=== PATIENT | male | born 1950 | race Caucasian/White ===

== ENCOUNTER → 2016-10-15 | Outpatient (CLI) | payer BC, OTHER ==
[~2016-10-15] MED LIST: ACET325T96 PO; ACTUDL10 PEG; ALBU1NEB10 INH; AMOX1TAB43 PEG; ATRINSX NEB; BISA10SU3 PR; DOXA2TAB PEG; FLUO20SO PEG; FOLI1TAB7 PEG; HALO2CON PEG; HALO2TAB PEG; LANS30TA3 PEG; LCTX PEG; MAGN400T6 PEG; MELA3CAP PEG; METH1TAB3 PO; METO25TA56 PEG; METO5TAB3 PEG; MICO12CR TOP; MOML PO; NUTR-1305 PEG; NYST100098 TOP; POTA10LI12 PEG; SODIENE PR; TRAM-10 PEG; WARF-283 PEG
[2016-10-15 09:20] LABS: INR 3.2 (0.9-1.1); PROTHROMBIN TIME (PATIENT) 35.9 SECONDS (9.0-12.0)
== END | disposition home or self-care (01) ==
LOC: C.LABUPHEI 08:45
PROVIDERS: ATTEND Family Medicine
DX: I48.91 Unspecified atrial fibrillation (principal)

== ENCOUNTER → 2016-10-18 | Outpatient (CLI) | payer BC, OTHER ==
[2016-10-18 11:40] LABS: PROTHROMBIN TIME (PATIENT) 46.8 SECONDS (9.0-12.0)
[2016-10-18 11:42] LABS: INR 4.1 (0.9-1.1)
== END ==
LOC: C.LABUPHEI 10:48
PROVIDERS: ATTEND Family Medicine
DX: I48.91 Unspecified atrial fibrillation (principal)

== ENCOUNTER → 2016-10-20 | Outpatient (CLI) | payer BC, OTHER ==
[2016-10-20 15:51] LABS: PROTHROMBIN TIME (PATIENT) 51.1 SECONDS (9.0-12.0)
[2016-10-20 15:54] LABS: INR 4.5 (0.9-1.1)
== END | disposition home or self-care (01) ==
LOC: C.LABUPHEI 12:30
PROVIDERS: ATTEND Family Medicine
DX: I48.91 Unspecified atrial fibrillation (principal)

== ENCOUNTER → 2016-10-20 | Outpatient (CLI) | payer BC, OTHER ==
--- NOTE | 2016-10-25 13:39 | CODING QUERY NO DIAGNOSIS ---
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 Please assist us with providing a diagnosis/symptom for the test(s) below: A diagnosis/symptom was not documented on your Order. A valid diagnosis/symptom is required to bill all insurances. Please remember that we are unable to code a diagnosis of rule out, probable, possible, questionable, or suspected. Tests that require a diagnosis: DOS: 10/20/16 * Prothrombin Time Profile DIAGNOSIS: Provider Signature: Date: Thank you Sheela Dacosta Health Information Management Once completed, please kindly fax back to [phone] For questions please call [phone]
== END ==
LOC: C.LABUPHEI 12:01
PROVIDERS: ATTEND Family Medicine
DX: Z00.00 Encounter for general adult medical examination without abnormal findings (principal)

== ENCOUNTER → 2016-10-22 | Outpatient (CLI) | payer BC, OTHER ==
[2016-10-22 09:47] LABS: INR 2.7 (0.9-1.1); PROTHROMBIN TIME (PATIENT) 29.7 SECONDS (9.0-12.0)
== END ==
LOC: C.LABUPHEI 09:07
PROVIDERS: ATTEND Family Medicine
DX: I48.91 Unspecified atrial fibrillation (principal)

== ENCOUNTER → 2016-10-31 | Outpatient (CLI) | payer BC, OTHER ==
[2016-10-31 10:06] LABS: INR 1.2 (0.9-1.1); PROTHROMBIN TIME (PATIENT) 13.2 SECONDS (9.0-12.0)
== END ==
LOC: C.LABUPHEI 09:01
PROVIDERS: ATTEND Family Medicine
DX: I48.91 Unspecified atrial fibrillation (principal)

== ENCOUNTER → 2016-12-14 | Outpatient (CLI) | payer BC, OTHER ==
[2016-12-14 08:55] LABS: URINE APPEARANCE TURBID (CLEAR); URINE BILIRUBIN NEG (NEG); URINE COLOR YELLOW; URINE EPITHELIAL CELL AUTO 0-5 /lpf (0-5); URINE NITRITE NEG (NEG); URINE SPECIFIC GRAVITY 1.015 (1.000-1.030); UROBILINOGEN NEG (NEG)
[2016-12-14 08:57] LABS: MANUAL MICROSCOPIC REQUIRED? NO; REVIEW REQ? NO
== END | disposition home or self-care (01) ==
LOC: C.LABUPHEI 08:03
PROVIDERS: ATTEND Family Medicine
DX: R35.0 Frequency of micturition (principal)

== ENCOUNTER → 2017-01-01 | Outpatient (CLI) | payer BC, OTHER ==
[2017-01-01 09:42] LABS: BASO % 0.5 %; BASO ABS # 0.05 K/uL (0-0.2); COMPLETE YES; EOS % 2.3 %; HEMATOCRIT 41.7 % (42-52); IG% 0.3 %; LYMPH % 10.6 %; LYMPH ABS # 1.03 K/uL (1.2-3.4); MEAN CELL VOLUME 98.3 fL (80-100); MEAN CORPUSCULAR HEMOGLOBIN 32.8 pg (25-34); MEAN CORPUSCULAR HGB CONC 33.3 g/dl (32-36); MEAN PLATELET VOLUME 12.7 fL (7.4-10.4); MONO % 10.5 %; NEUT % 75.8 %; PLATELET COUNT 328 K/uL (130-400); RED BLOOD COUNT 4.24 M/uL (4.7-6.1); WHITE BLOOD COUNT 9.68 K/uL (4.8-10.8)
[2017-01-01 09:46] LABS: BLOOD UREA NITROGEN 21 mg/dl (7-18); BUN/CREATININE RATIO 23.9 (10-20); CALCIUM 8.6 mg/dl (8.5-10.1); CARBON DIOXIDE 29 mmol/L (21-32); CHLORIDE 109 mmol/L (98-107); GLUCOSE 117 mg/dl (70-99); POTASSIUM 4.2 mmol/L (3.5-5.1); SODIUM 144 mmol/L (136-145)
[2017-01-01 09:58] LABS: THYROID STIMULATING HORMONE 0.618 uIu/ml (0.300-4.500)
[2017-01-01 10:07] LABS: INR 1.7 (0.9-1.1); PROTHROMBIN TIME (PATIENT) 18.1 SECONDS (9.0-12.0)
== END ==
LOC: C.LABUPHEI 09:18
PROVIDERS: ATTEND Family Medicine
DX: I10 Essential (primary) hypertension (principal); R53.83 Other fatigue; I48.91 Unspecified atrial fibrillation

== ENCOUNTER → 2017-01-08 | Outpatient (CLI) | payer BC, OTHER ==
[2017-01-08 09:57] LABS: INR 1.9 (0.9-1.1); PROTHROMBIN TIME (PATIENT) 20.9 SECONDS (9.0-12.0)
== END | disposition home or self-care (01) ==
LOC: C.LABUPHEI 09:17
PROVIDERS: ATTEND Family Medicine
DX: I48.91 Unspecified atrial fibrillation (principal)

== ENCOUNTER → 2017-01-15 | Outpatient (CLI) | payer BC, OTHER ==
[2017-01-15 10:19] LABS: INR 2.3 (0.9-1.1)
== END ==
LOC: C.LABUPHEI 09:19
PROVIDERS: ATTEND Family Medicine
DX: I48.91 Unspecified atrial fibrillation (principal)

== ENCOUNTER → 2017-02-20 | Outpatient (CLI) | payer BC, OTHER ==
[2017-02-20 10:06] LABS: INR 1.5 (0.9-1.1); PROTHROMBIN TIME (PATIENT) 16.1 SECONDS (9.0-12.0)
== END ==
LOC: C.LABUPHEI 09:30
PROVIDERS: ATTEND Nurse Practitioner Family
DX: I48.91 Unspecified atrial fibrillation (principal)

== ENCOUNTER → 2017-02-25 | Outpatient (CLI) | payer BC, OTHER ==
[2017-02-25 09:19] LABS: INR 1.5 (0.9-1.1); PROTHROMBIN TIME (PATIENT) 16.3 SECONDS (9.0-12.0)
== END ==
LOC: C.LABUPHEI 08:38
PROVIDERS: ATTEND Nurse Practitioner Family
DX: I48.91 Unspecified atrial fibrillation (principal)

== ENCOUNTER → 2017-02-27 | Outpatient (CLI) | payer BC, OTHER ==
[2017-02-27 09:04] LABS: INR 1.7 (0.9-1.1)
== END ==
LOC: C.LABUPHEI 08:44
PROVIDERS: ATTEND Family Medicine
DX: I48.91 Unspecified atrial fibrillation (principal)

== ENCOUNTER → 2017-03-04 | Outpatient (CLI) | payer BC, OTHER ==
[2017-03-04 11:11] LABS: PROTHROMBIN TIME (PATIENT) 33.3 SECONDS (9.0-12.0)
== END ==
LOC: C.LABUPHEI 09:34
PROVIDERS: ATTEND Nurse Practitioner Family
DX: I48.91 Unspecified atrial fibrillation (principal)

== ENCOUNTER → 2017-03-05 | Outpatient (CLI) | payer BC, OTHER ==
[2017-03-05 11:13] LABS: INR 2.5 (0.9-1.1); PROTHROMBIN TIME (PATIENT) 27.4 SECONDS (9.0-12.0)
== END ==
LOC: C.LABUPHEI 09:14
PROVIDERS: ATTEND Family Medicine
DX: I48.91 Unspecified atrial fibrillation (principal)

== ENCOUNTER → 2017-03-12 | Outpatient (CLI) | payer BC, OTHER ==
[2017-03-12 10:58] LABS: INR 1.5 (0.9-1.1); PROTHROMBIN TIME (PATIENT) 16.7 SECONDS (9.0-12.0)
== END ==
LOC: C.LABUPHEI 10:16
PROVIDERS: ATTEND Family Medicine
DX: I48.91 Unspecified atrial fibrillation (principal)

== ENCOUNTER → 2017-03-19 | Outpatient (CLI) | payer BC, OTHER ==
[2017-03-19 09:53] LABS: INR 2.5 (0.9-1.1); PROTHROMBIN TIME (PATIENT) 27.9 SECONDS (9.0-12.0)
== END ==
LOC: C.LABUPHEI 09:16
PROVIDERS: ATTEND Family Medicine
DX: I48.91 Unspecified atrial fibrillation (principal)

== ENCOUNTER → 2017-03-26 | Outpatient (CLI) | payer BC, OTHER ==
[2017-03-26 11:08] LABS: INR 3.2 (0.9-1.1); PROTHROMBIN TIME (PATIENT) 35.9 SECONDS (9.0-12.0)
== END | disposition home or self-care (01) ==
LOC: C.LABUPHEI 09:19
PROVIDERS: ATTEND Family Medicine
DX: I48.91 Unspecified atrial fibrillation (principal)

== ENCOUNTER → 2017-03-28 | Outpatient (CLI) | payer BC, OTHER ==
[2017-03-28 09:19] LABS: INR 2.9 (0.9-1.1)
== END | disposition home or self-care (01) ==
LOC: C.LABUPHEI 08:21
PROVIDERS: ATTEND Family Medicine
DX: I48.91 Unspecified atrial fibrillation (principal)

== ENCOUNTER → 2017-04-04 | Outpatient (CLI) | payer BC, OTHER ==
[2017-04-04 10:53] LABS: INR 1.7 (0.9-1.1); PROTHROMBIN TIME (PATIENT) 18.1 SECONDS (9.0-12.0)
== END | disposition home or self-care (01) ==
LOC: C.LABUPHEI 09:16
PROVIDERS: ATTEND Family Medicine
DX: Z51.81 Encounter for therapeutic drug level monitoring (principal); Z79.01 Long term (current) use of anticoagulants; I48.91 Unspecified atrial fibrillation

== ENCOUNTER → 2017-04-08 | Outpatient (CLI) | payer BC, OTHER ==
[2017-04-08 11:00] LABS: BASO ABS # 0.07 K/uL (0-0.2); COMPLETE YES; EOS % 3.5 %; HEMATOCRIT 42.3 % (42-52); IG% 0.3 %; LYMPH % 26.3 %; LYMPH ABS # 1.78 K/uL (1.2-3.4); MEAN CELL VOLUME 99.5 fL (80-100); MEAN CORPUSCULAR HEMOGLOBIN 32.5 pg (25-34); MEAN CORPUSCULAR HGB CONC 32.6 g/dl (32-36); MEAN PLATELET VOLUME 13.1 fL (7.4-10.4); MONO % 12.2 %; NEUT % 56.7 %; PLATELET COUNT 298 K/uL (130-400); RED BLOOD COUNT 4.25 M/uL (4.7-6.1); WHITE BLOOD COUNT 6.78 K/uL (4.8-10.8)
[2017-04-08 11:03] LABS: INR 3.2 (0.9-1.1); PROTHROMBIN TIME (PATIENT) 36.4 SECONDS (9.0-12.0)
[2017-04-08 11:17] LABS: ALT/SGPT 52 U/L (12-78); BLOOD UREA NITROGEN 18 mg/dl (7-18); BUN/CREATININE RATIO 21.5 (10-20); CALCIUM 8.9 mg/dl (8.5-10.1); CARBON DIOXIDE 32 mmol/L (21-32); CHLORIDE 104 mmol/L (98-107); CREATININE 0.82 mg/dl (0.60-1.40); GLUCOSE 78 mg/dl (70-99); SODIUM 143 mmol/L (136-145)
[2017-04-08 11:19] LABS: ALB/GLOB RATIO 1.1 (0.9-2); ALKALINE PHOSPHATASE 106 U/L (45-117); AST/SGOT 41 U/L (15-37)
== END | disposition home or self-care (01) ==
LOC: C.LABUPHEI 08:08
PROVIDERS: ATTEND Family Medicine
DX: I10 Essential (primary) hypertension (principal); I48.91 Unspecified atrial fibrillation

== ENCOUNTER → 2017-04-11 | Outpatient (CLI) | payer BC, OTHER ==
[2017-04-11 10:52] LABS: INR 2.9 (0.9-1.1); PROTHROMBIN TIME (PATIENT) 32.7 SECONDS (9.0-12.0)
== END ==
LOC: C.LABUPHEI 09:06
PROVIDERS: ATTEND Family Medicine
DX: I48.91 Unspecified atrial fibrillation (principal)

== ENCOUNTER → 2017-04-18 | Outpatient (CLI) | payer BC, OTHER ==
[2017-04-18 09:28] LABS: INR 2.2 (0.9-1.1); PROTHROMBIN TIME (PATIENT) 24.1 SECONDS (9.0-12.0)
== END ==
LOC: C.LABUPHEI 08:09
PROVIDERS: ATTEND Family Medicine
DX: Z01.89 Encounter for other specified special examinations (principal)

== ENCOUNTER → 2017-04-27 | Outpatient (CLI) | payer BC, OTHER ==
[2017-04-27 06:58] LABS: BASO % 0.4 %; BASO ABS # 0.03 K/uL (0-0.2); COMPLETE YES; EOS % 2.3 %; HEMATOCRIT 43.9 % (42-52); IG% 0.1 %; LYMPH % 18.8 %; LYMPH ABS # 1.41 K/uL (1.2-3.4); MEAN CELL VOLUME 98.2 fL (80-100); MEAN CORPUSCULAR HEMOGLOBIN 31.5 pg (25-34); MEAN CORPUSCULAR HGB CONC 32.1 g/dl (32-36); MEAN PLATELET VOLUME 13.1 fL (7.4-10.4); MONO % 12.9 %; NEUT % 65.5 %; PLATELET COUNT 304 K/uL (130-400); RED BLOOD COUNT 4.47 M/uL (4.7-6.1); WHITE BLOOD COUNT 7.51 K/uL (4.8-10.8)
== END | disposition home or self-care (01) ==
LOC: C.LABUPHEI 12:08
PROVIDERS: ATTEND Family Medicine
DX: I10 Essential (primary) hypertension (principal)

== ENCOUNTER → 2017-05-03 | Outpatient (CLI) | payer BC, OTHER ==
[2017-05-03 09:15] LABS: PROTHROMBIN TIME (PATIENT) 42.8 SECONDS (9.0-12.0)
[2017-05-03 09:31] LABS: INR 3.8 (0.9-1.1)
== END ==
LOC: C.LABUPHEI 08:51
PROVIDERS: ATTEND Nurse Practitioner Family
DX: I48.91 Unspecified atrial fibrillation (principal)

== ENCOUNTER → 2017-05-10 | Outpatient (CLI) | payer BC, OTHER ==
[2017-05-10 10:17] LABS: PROTHROMBIN TIME (PATIENT) 68.9 SECONDS (9.0-12.0)
== END | disposition home or self-care (01) ==
LOC: C.LABUPHEI 09:36
PROVIDERS: ATTEND Family Medicine
DX: I48.91 Unspecified atrial fibrillation (principal)

== ENCOUNTER → 2017-05-11 | Outpatient (CLI) | payer BC, OTHER ==
[2017-05-11 08:35] LABS: INR 2.5 (0.9-1.1); PROTHROMBIN TIME (PATIENT) 27.9 SECONDS (9.0-12.0)
== END ==
LOC: C.LABUPHEI 08:24
PROVIDERS: ATTEND Family Medicine
DX: I48.91 Unspecified atrial fibrillation (principal)

== ENCOUNTER → 2017-05-13 | Outpatient (CLI) | payer BC, OTHER ==
[2017-05-13 10:37] LABS: INR 2.3 (0.9-1.1); PROTHROMBIN TIME (PATIENT) 25.4 SECONDS (9.0-12.0)
== END ==
LOC: C.LABUPHEI 09:45
PROVIDERS: ATTEND Nurse Practitioner Family
DX: I48.91 Unspecified atrial fibrillation (principal)

== ENCOUNTER → 2017-05-16 | Outpatient (CLI) | payer BC, OTHER ==
[2017-05-16 09:28] LABS: PROTHROMBIN TIME (PATIENT) 22.5 SECONDS (9.0-12.0)
== END ==
LOC: C.LABUPHEI 08:46
PROVIDERS: ATTEND Nurse Practitioner Family
DX: I48.91 Unspecified atrial fibrillation (principal)

== ENCOUNTER → 2017-06-03 | Outpatient (CLI) | payer BC, OTHER ==
[2017-06-03 09:45] LABS: INR 2.4 (0.9-1.1); PROTHROMBIN TIME (PATIENT) 26.8 SECONDS (9.0-12.0)
== END ==
LOC: C.LABUPHEI 09:14
PROVIDERS: ATTEND Nurse Practitioner Family
DX: I48.91 Unspecified atrial fibrillation (principal)

== ENCOUNTER → 2017-06-18 | Outpatient (CLI) | payer BC, OTHER ==
[2017-06-18 11:35] LABS: INR 1.8 (0.9-1.1); PROTHROMBIN TIME (PATIENT) 20.1 SECONDS (9.0-12.0)
== END | disposition home or self-care (01) ==
LOC: C.LABUPHEI 10:10
PROVIDERS: ATTEND Nurse Practitioner Family
DX: I48.91 Unspecified atrial fibrillation (principal)

== ENCOUNTER → 2017-06-28 | Outpatient (CLI) | payer BC, OTHER ==
[2017-06-28 09:11] LABS: INR 2.9 (0.9-1.1); PROTHROMBIN TIME (PATIENT) 32.1 SECONDS (9.0-12.0)
[2017-06-28 09:19] LABS: ALT/SGPT 38 U/L (12-78); AST/SGOT 32 U/L (15-37); BLOOD UREA NITROGEN 15 mg/dl (7-18); BUN/CREATININE RATIO 23.9 (10-20); CALCIUM 8.7 mg/dl (8.5-10.1); CARBON DIOXIDE 31 mmol/L (21-32); CHLORIDE 106 mmol/L (98-107); CREATININE 0.64 mg/dl (0.60-1.40); GLUCOSE 114 mg/dl (70-99); POTASSIUM 3.8 mmol/L (3.5-5.1); SODIUM 139 mmol/L (136-145)
[2017-06-28 09:22] LABS: ALKALINE PHOSPHATASE 103 U/L (45-117)
== END | disposition home or self-care (01) ==
LOC: C.LABUPHEI 08:31
PROVIDERS: ATTEND Nurse Practitioner Family
DX: I10 Essential (primary) hypertension (principal); I48.91 Unspecified atrial fibrillation

== ENCOUNTER → 2017-07-12 | Outpatient (CLI) | payer BC, OTHER ==
[2017-07-12 10:10] LABS: INR 1.5 (0.9-1.1); PROTHROMBIN TIME (PATIENT) 16.3 SECONDS (9.0-12.0)
== END ==
LOC: C.LABUPHEI 09:26
PROVIDERS: ATTEND Nurse Practitioner Family
DX: I48.91 Unspecified atrial fibrillation (principal)

== ENCOUNTER → 2017-07-23 | Outpatient (CLI) | payer BC, OTHER ==
[2017-07-23 08:29] LABS: BASO % 0.4 %; BASO ABS # 0.05 K/uL (0-0.2); COMPLETE YES; EOS % 2.8 %; HEMATOCRIT 40.7 % (42-52); IG% 0.3 %; LYMPH % 10.1 %; LYMPH ABS # 1.19 K/uL (1.2-3.4); MEAN CELL VOLUME 100.5 fL (80-100); MEAN CORPUSCULAR HEMOGLOBIN 33.6 pg (25-34); MEAN CORPUSCULAR HGB CONC 33.4 g/dl (32-36); MEAN PLATELET VOLUME 12.5 fL (7.4-10.4); MONO % 12.4 %; PLATELET COUNT 367 K/uL (130-400); RED BLOOD COUNT 4.05 M/uL (4.7-6.1); WHITE BLOOD COUNT 11.74 K/uL (4.8-10.8)
== END ==
LOC: C.LABUPHEI 08:14
PROVIDERS: ATTEND Nurse Practitioner Family
DX: I48.91 Unspecified atrial fibrillation (principal)

== ENCOUNTER → 2017-07-25 | Outpatient (CLI) | payer BC, OTHER ==
[2017-07-25 09:18] LABS: BASO % 0.7 %; BASO ABS # 0.05 K/uL (0-0.2); COMPLETE YES; EOS % 4.4 %; HEMATOCRIT 40.1 % (42-52); IG% 0.3 %; LYMPH % 18.9 %; LYMPH ABS # 1.45 K/uL (1.2-3.4); MEAN CELL VOLUME 101.5 fL (80-100); MEAN CORPUSCULAR HEMOGLOBIN 33.4 pg (25-34); MEAN CORPUSCULAR HGB CONC 32.9 g/dl (32-36); MEAN PLATELET VOLUME 12.7 fL (7.4-10.4); MONO % 14.3 %; NEUT % 61.4 %; PLATELET COUNT 324 K/uL (130-400); RED BLOOD COUNT 3.95 M/uL (4.7-6.1); WHITE BLOOD COUNT 7.67 K/uL (4.8-10.8)
== END | disposition home or self-care (01) ==
LOC: C.LABUPHEI 09:00
PROVIDERS: ATTEND Nurse Practitioner Family
DX: I48.91 Unspecified atrial fibrillation (principal)

== ENCOUNTER → 2017-08-07 | Outpatient (CLI) | payer BC, OTHER ==
[2017-08-07 08:35] LABS: INR 0.9 (0.9-1.1)
== END ==
LOC: C.LABUPHEI 07:59
PROVIDERS: ATTEND Nurse Practitioner Family
DX: I48.91 Unspecified atrial fibrillation (principal)

== ENCOUNTER → 2017-08-12 | Outpatient (CLI) | payer BC, OTHER ==
[2017-08-12 09:43] LABS: INR 3.2 (0.9-1.1); PROTHROMBIN TIME (PATIENT) 36.2 SECONDS (9.0-12.0)
== END ==
LOC: C.LABUPHEI 09:07
PROVIDERS: ATTEND Nurse Practitioner Family
DX: I48.91 Unspecified atrial fibrillation (principal)

== ENCOUNTER → 2017-08-23 | Outpatient (CLI) | payer BC, OTHER ==
[2017-08-23 10:07] LABS: INR 2.8 (0.9-1.1); PROTHROMBIN TIME (PATIENT) 31.7 SECONDS (9.0-12.0)
== END ==
LOC: C.LABUPHEI 09:23
PROVIDERS: ATTEND Nurse Practitioner Family
DX: I48.91 Unspecified atrial fibrillation (principal)

== ENCOUNTER → 2017-09-04 | Outpatient (CLI) | payer BC, OTHER ==
[2017-09-04 08:43] LABS: INR 2.7 (0.9-1.1); PROTHROMBIN TIME (PATIENT) 30.2 SECONDS (9.0-12.0)
== END ==
LOC: C.LABUPHEI 07:55
PROVIDERS: ATTEND Nurse Practitioner Family
DX: I48.91 Unspecified atrial fibrillation (principal)

== ENCOUNTER → 2017-09-18 | Outpatient (CLI) | payer BC, OTHER ==
[2017-09-18 09:25] LABS: INR 1.4 (0.9-1.1); PROTHROMBIN TIME (PATIENT) 14.6 SECONDS (9.0-12.0)
== END ==
LOC: C.LABUPHEI 09:05
PROVIDERS: ATTEND Nurse Practitioner Family
DX: Z51.81 Encounter for therapeutic drug level monitoring (principal); Z79.01 Long term (current) use of anticoagulants

== ENCOUNTER → 2017-09-19 | Outpatient (CLI) | payer BC, OTHER ==
[2017-09-19 08:52] LABS: BASO % 0.2 %; BASO ABS # 0.03 K/uL (0-0.2); COMPLETE YES; EOS % 0.3 %; HEMATOCRIT 40.5 % (42-52); IG% 0.3 %; LYMPH % 7.8 %; LYMPH ABS # 1.12 K/uL (1.2-3.4); MEAN CELL VOLUME 99.5 fL (80-100); MEAN CORPUSCULAR HEMOGLOBIN 33.4 pg (25-34); MEAN CORPUSCULAR HGB CONC 33.6 g/dl (32-36); MEAN PLATELET VOLUME 12.9 fL (7.4-10.4); MONO % 9.5 %; NEUT % 81.9 %; PLATELET COUNT 287 K/uL (130-400); RED BLOOD COUNT 4.07 M/uL (4.7-6.1); WHITE BLOOD COUNT 14.31 K/uL (4.8-10.8)
[2017-09-19 09:03] LABS: ALT/SGPT 41 U/L (12-78); BLOOD UREA NITROGEN 27 mg/dl (7-18); BUN/CREATININE RATIO 27.2 (10-20); CALCIUM 8.6 mg/dl (8.5-10.1); CARBON DIOXIDE 29 mmol/L (21-32); CHLORIDE 103 mmol/L (98-107); CREATININE 0.98 mg/dl (0.60-1.40); GLUCOSE 96 mg/dl (70-99); POTASSIUM 3.9 mmol/L (3.5-5.1); SODIUM 138 mmol/L (136-145)
[2017-09-19 09:05] LABS: ALB/GLOB RATIO 0.9 (0.9-2); ALKALINE PHOSPHATASE 96 U/L (45-117); AST/SGOT 49 U/L (15-37)
[2017-09-19 09:06] LABS: URINE APPEARANCE CLEAR (CLEAR); URINE COLOR DK YELLOW; URINE EPITHELIAL CELL AUTO >30 /lpf (0-5); URINE NITRITE NEG (NEG); URINE PH 5.5 (4.5-7.5); URINE SPECIFIC GRAVITY 1.029 (1.000-1.030); UROBILINOGEN NEG (NEG); ZZUR CULT IF INDIC CLEAN CATCH NO
[2017-09-19 09:09] LABS: MANUAL MICROSCOPIC REQUIRED? NO; REVIEW REQ? YES
[2017-09-19 09:10] LABS: URINE BILIRUBIN NEG (NEG)
== END ==
LOC: C.LABUPHEI 08:25
PROVIDERS: ATTEND Nurse Practitioner Family
DX: Z87.19 Personal history of other diseases of the digestive system (principal); R52 Pain, unspecified

== ENCOUNTER → 2017-09-23 | Outpatient (CLI) | payer BC, OTHER ==
[~2017-09-23] MED LIST changes: -FOLI1TAB7 PEG; +FOLI1TAB8 PEG
[2017-09-23 08:44] LABS: BASO % 0.5 %; BASO ABS # 0.04 K/uL (0-0.2); COMPLETE YES; HEMATOCRIT 38.4 % (42-52); IG% 0.5 %; LYMPH % 19.5 %; LYMPH ABS # 1.67 K/uL (1.2-3.4); MEAN CELL VOLUME 99.7 fL (80-100); MEAN CORPUSCULAR HEMOGLOBIN 32.5 pg (25-34); MEAN CORPUSCULAR HGB CONC 32.6 g/dl (32-36); MEAN PLATELET VOLUME 12.3 fL (7.4-10.4); NEUT % 61.5 %; PLATELET COUNT 353 K/uL (130-400); RED BLOOD COUNT 3.85 M/uL (4.7-6.1); WHITE BLOOD COUNT 8.55 K/uL (4.8-10.8)
[2017-09-23 08:52] LABS: BLOOD UREA NITROGEN 12 mg/dl (7-18); BUN/CREATININE RATIO 18.6 (10-20); CALCIUM 8.6 mg/dl (8.5-10.1); CARBON DIOXIDE 28 mmol/L (21-32); CHLORIDE 105 mmol/L (98-107); CREATININE 0.66 mg/dl (0.60-1.40); GLUCOSE 90 mg/dl (70-99); POTASSIUM 4.3 mmol/L (3.5-5.1); SODIUM 138 mmol/L (136-145)
== END ==
LOC: C.LABUPHEI 08:22
PROVIDERS: ATTEND Nurse Practitioner Family
DX: E87.6 Hypokalemia (principal); Z87.01 Personal history of pneumonia (recurrent); I48.91 Unspecified atrial fibrillation

== ENCOUNTER → 2017-09-24 | Outpatient (CLI) | payer OTHER, BC ==
[2017-09-24 08:53] LABS: PROTHROMBIN TIME (PATIENT) 39.3 SECONDS (9.0-12.0)
[2017-09-24 08:54] LABS: INR 3.8 (0.9-1.1)
== END ==
LOC: C.LABUPHEI 08:14
PROVIDERS: ATTEND Nurse Practitioner Family
DX: I48.91 Unspecified atrial fibrillation (principal)

== ENCOUNTER → 2017-09-25 | Outpatient (CLI) | payer OTHER, BC ==
[2017-09-25 08:33] LABS: PROTHROMBIN TIME (PATIENT) 39.7 SECONDS (9.0-12.0)
[2017-09-25 08:36] LABS: INR 3.9 (0.9-1.1)
== END ==
LOC: C.LABUPHEI 07:57
PROVIDERS: ATTEND Nurse Practitioner Family
DX: Z95.2 Presence of prosthetic heart valve (principal)

== ENCOUNTER → 2017-09-27 | Outpatient (CLI) | payer OTHER, BC ==
[2017-09-27 08:57] LABS: INR 1.8 (0.9-1.1); PROTHROMBIN TIME (PATIENT) 18.9 SECONDS (9.0-12.0)
== END ==
LOC: C.LABUPHEI 08:29
PROVIDERS: ATTEND Nurse Practitioner Family
DX: I48.91 Unspecified atrial fibrillation (principal)

== ENCOUNTER → 2017-09-30 | Outpatient (CLI) | payer OTHER, BC ==
[2017-09-30 09:40] LABS: PROTHROMBIN TIME (PATIENT) 10.9 SECONDS (9.0-12.0)
== END ==
LOC: C.LABUPHEI 08:39
PROVIDERS: ATTEND Nurse Practitioner Family
DX: I10 Essential (primary) hypertension (principal)

== ENCOUNTER → 2017-10-03 | Outpatient (CLI) | payer BC, OTHER ==
[2017-10-03 09:21] LABS: INR 0.9 (0.9-1.1); PROTHROMBIN TIME (PATIENT) 9.7 SECONDS (9.0-12.0)
== END ==
LOC: C.LABUPHEI 08:38
PROVIDERS: ATTEND Nurse Practitioner Family
DX: I48.91 Unspecified atrial fibrillation (principal)

== ENCOUNTER → 2017-10-08 | Outpatient (CLI) | payer BC, OTHER ==
[2017-10-08 09:53] LABS: INR 1.7 (0.9-1.1); PROTHROMBIN TIME (PATIENT) 17.4 SECONDS (9.0-12.0)
== END ==
LOC: C.LABUPHEI 08:48
PROVIDERS: ATTEND Nurse Practitioner Family
DX: I48.91 Unspecified atrial fibrillation (principal)

== ENCOUNTER → 2017-10-10 | Outpatient (CLI) | payer BC, OTHER ==
[2017-10-10 09:27] LABS: INR 1.6 (0.9-1.1)
== END ==
LOC: C.LABUPHEI 09:07
PROVIDERS: ATTEND Nurse Practitioner Family
DX: I48.91 Unspecified atrial fibrillation (principal)

== ENCOUNTER → 2017-10-12 | Outpatient (CLI) | payer BC, OTHER ==
[~2017-10-12] MED LIST changes: +ACET-1693 PO; -ACET325T96 PO; -FLUO20SO PEG; +FLUO20SO9 PEG
[2017-10-12 05:39] LABS: INR 1.9 (0.9-1.1)
== END ==
LOC: C.LABUPHEI 12:04
PROVIDERS: ATTEND Nurse Practitioner Family
DX: I48.91 Unspecified atrial fibrillation (principal)

== ENCOUNTER → 2017-10-15 | Outpatient (CLI) | payer OTHER ==
[2017-10-15 08:18] LABS: INR 2.8 (0.9-1.1)
== END ==
LOC: C.LABUPHEI 07:39
PROVIDERS: ATTEND Nurse Practitioner Family
DX: I48.91 Unspecified atrial fibrillation (principal)

== ENCOUNTER → 2017-10-17 | Outpatient (CLI) | payer OTHER ==
[~2017-10-17] MED LIST changes: -ACET-1693 PO; +ACET325T96 PO; +FLUO20SO PEG; -FLUO20SO9 PEG
[2017-10-17 09:19] LABS: INR 3.7 (0.9-1.1)
== END ==
LOC: C.LABUPHEI 08:37
PROVIDERS: ATTEND Nurse Practitioner Family
DX: I48.91 Unspecified atrial fibrillation (principal)

== ENCOUNTER → 2017-10-18 | Outpatient (CLI) | payer OTHER ==
[~2017-10-18] MED LIST changes: +ACET-1693 PO; -ACET325T96 PO; -FLUO20SO PEG; +FLUO20SO9 PEG
[2017-10-18 09:21] LABS: INR 4.1 (0.9-1.1)
== END ==
LOC: C.LABUPHEI 08:34
PROVIDERS: ATTEND Nurse Practitioner Family
DX: I48.91 Unspecified atrial fibrillation (principal)

== ENCOUNTER → 2017-10-19 | Outpatient (CLI) | payer OTHER ==
[~2017-10-19] MED LIST changes: -ACET-1693 PO; +ACET325T96 PO; +FLUO20SO PEG; -FLUO20SO9 PEG
[2017-10-19 06:47] LABS: INR 2.9 (0.9-1.1)
== END ==
LOC: C.LABUPHEI 09:38
PROVIDERS: ATTEND Nurse Practitioner Family
DX: R79.1 Abnormal coagulation profile (principal)

== ENCOUNTER → 2017-10-21 | Outpatient (CLI) | payer OTHER ==
[2017-10-21 09:36] LABS: INR 2.1 (0.9-1.1)
== END ==
LOC: C.LABUPHEI 09:17
PROVIDERS: ATTEND Nurse Practitioner Family
DX: I48.91 Unspecified atrial fibrillation (principal)

== ENCOUNTER → 2017-10-25 | Outpatient (CLI) | payer OTHER | LOC: C.LABUPHEI 08:13 | PROVIDERS: ATTEND Nurse Practitioner Family | DX: I48.91 Unspecified atrial fibrillation (principal) ==

== ENCOUNTER → 2017-11-01 | Outpatient (CLI) | payer OTHER | END | disposition home or self-care (01) | LOC: C.LABUPHEI 08:11 | PROVIDERS: ATTEND Nurse Practitioner Family | DX: I48.91 Unspecified atrial fibrillation (principal) ==

== ENCOUNTER → 2017-11-08 | Outpatient (CLI) | payer OTHER ==
[2017-11-08 08:55] LABS: INR 2.6 (0.9-1.1)
== END ==
LOC: C.LABUPHEI 08:23
PROVIDERS: ATTEND Nurse Practitioner Family
DX: I48.91 Unspecified atrial fibrillation (principal)

== ENCOUNTER → 2017-11-21 | Outpatient (CLI) | payer OTHER ==
[~2017-11-21] MED LIST changes: +ACET-1693 PO; -ACET325T96 PO
[2017-11-21 09:49] LABS: INR 2.5 (0.9-1.1)
== END ==
LOC: C.LABUPHEI 09:05
PROVIDERS: ATTEND Nurse Practitioner Family
DX: I48.91 Unspecified atrial fibrillation (principal)

== ENCOUNTER → 2017-12-05 | Outpatient (CLI) | payer OTHER | LOC: C.LABUPHEI 08:45 | PROVIDERS: ATTEND Nurse Practitioner Family | DX: I48.91 Unspecified atrial fibrillation (principal) ==

== ENCOUNTER → 2017-12-19 | Outpatient (CLI) | payer OTHER ==
[2017-12-19 10:05] LABS: INR 2.2 (0.9-1.1)
== END ==
LOC: C.LABUPHEI 08:35
PROVIDERS: ATTEND Nurse Practitioner Family
DX: I48.91 Unspecified atrial fibrillation (principal)

== ENCOUNTER → 2017-12-24 | Outpatient (CLI) | payer OTHER | END | disposition home or self-care (01) | LOC: C.LABUPHEI 09:35 | PROVIDERS: ATTEND Nurse Practitioner Family | DX: H57.9 Unspecified disorder of eye and adnexa (principal) ==

== ENCOUNTER → 2018-01-02 | Outpatient (CLI) | payer OTHER ==
[2018-01-02 08:54] LABS: INR 3.2 (0.9-1.1)
== END ==
LOC: C.LABUPHEI 08:21
PROVIDERS: ATTEND Nurse Practitioner Family
DX: I48.91 Unspecified atrial fibrillation (principal)

== ENCOUNTER → 2018-01-03 | Outpatient (CLI) | payer OTHER | LOC: C.LABUPHEI 07:55 | PROVIDERS: ATTEND Nurse Practitioner Family | DX: I48.91 Unspecified atrial fibrillation (principal) ==

== ENCOUNTER → 2018-01-06 | Outpatient (CLI) | payer OTHER ==
[2018-01-06 08:53] LABS: INR 1.7 (0.9-1.1)
== END ==
LOC: C.LABUPHEI 08:27
PROVIDERS: ATTEND Nurse Practitioner Family
DX: I48.91 Unspecified atrial fibrillation (principal)

== ENCOUNTER → 2018-01-08 | Outpatient (CLI) | payer OTHER ==
[2018-01-08 09:39] LABS: INR 1.6 (0.9-1.1)
== END ==
LOC: C.LABUPHEI 09:18
PROVIDERS: ATTEND Nurse Practitioner Family
DX: I48.91 Unspecified atrial fibrillation (principal)

== ENCOUNTER → 2018-01-11 | Outpatient (CLI) | payer OTHER ==
[2018-01-11 06:55] LABS: INR 2.7 (0.9-1.1)
== END ==
LOC: C.LABUPHEI 10:11
PROVIDERS: ATTEND Nurse Practitioner Family
DX: I48.91 Unspecified atrial fibrillation (principal)

== ENCOUNTER → 2018-01-15 | Outpatient (CLI) | payer OTHER ==
[2018-01-15 10:06] LABS: BLOOD UREA NITROGEN 16 mg/dl (7-18); CALCIUM 9.1 mg/dl (8.5-10.1); CARBON DIOXIDE 31 mmol/L (21-32); CREATININE 0.89 mg/dl (0.60-1.40); GLUCOSE 79 mg/dl (70-99); POTASSIUM 4.1 mmol/L (3.5-5.1); SODIUM 139 mmol/L (136-145)
[2018-01-15 10:14] LABS: INR 5.2 (0.9-1.1)
== END ==
LOC: C.LABUPHEI 09:00
PROVIDERS: ATTEND Nurse Practitioner Family
DX: R60.9 Edema, unspecified (principal); I48.91 Unspecified atrial fibrillation

== ENCOUNTER → 2018-01-17 | Outpatient (CLI) | payer OTHER ==
[2018-01-17 12:32] LABS: INR 5.4 (0.9-1.1)
== END ==
LOC: C.LABUPHEI 07:49
PROVIDERS: ATTEND Nurse Practitioner Family
DX: I48.91 Unspecified atrial fibrillation (principal)

== ENCOUNTER → 2018-01-20 | Outpatient (CLI) | payer OTHER | LOC: C.LABUPHEI 08:48 | PROVIDERS: ATTEND Nurse Practitioner Family | DX: I48.91 Unspecified atrial fibrillation (principal) ==

== ENCOUNTER → 2018-01-22 | Outpatient (CLI) | payer OTHER ==
[2018-01-22 08:46] LABS: INR 1.6 (0.9-1.1)
== END ==
LOC: C.LABUPHEI 08:13
PROVIDERS: ATTEND Nurse Practitioner Family
DX: I48.91 Unspecified atrial fibrillation (principal)

== ENCOUNTER → 2018-01-24 | Outpatient (CLI) | payer OTHER ==
[2018-01-24 09:11] LABS: INR 2.1 (0.9-1.1)
== END ==
LOC: C.LABUPHEI 08:36
PROVIDERS: ATTEND Nurse Practitioner Family
DX: I48.91 Unspecified atrial fibrillation (principal)

== ENCOUNTER → 2018-01-27 | Outpatient (CLI) | payer OTHER ==
[2018-01-27 10:00] LABS: BASO % 0.2 %; BASO ABS # 0.03 K/uL (0-0.2); EOS ABS # 0.14 K/uL (0-0.5); HEMATOCRIT 42.8 % (42-52); HEMOGLOBIN 14.8 g/dL (14.0-18.0); IG# 0.03 K/uL (0.00-0.02); LYMPH % 7.1 %; LYMPH ABS # 0.95 K/uL (1.2-3.4); MEAN CELL VOLUME 94.5 fL (80-100); MEAN CORPUSCULAR HEMOGLOBIN 32.7 pg (25-34); MEAN CORPUSCULAR HGB CONC 34.6 g/dl (32-36); MEAN PLATELET VOLUME 12.4 fL (7.4-10.4); MONO % 13.6 %; MONO ABS # 1.81 K/uL (0.11-0.59); NEUT % 77.9 %; NEUT ABS # 10.39 K/uL (1.4-6.5); NUCLEATED RED BLOOD CELL ABS 0.03 K/uL (0-0); PLATELET COUNT 340 K/uL (130-400); RED CELL DISTRIBUTION WIDTH CV 15.9 % (11.5-14.5); WHITE BLOOD COUNT 13.35 K/uL (4.8-10.8)
[2018-01-27 10:09] LABS: BLOOD UREA NITROGEN 13 mg/dl (7-18); CALCIUM 9.3 mg/dl (8.5-10.1); CARBON DIOXIDE 28 mmol/L (21-32); CREATININE 0.82 mg/dl (0.60-1.40); GLUCOSE 99 mg/dl (70-99); INR 3.2 (0.9-1.1); POTASSIUM 3.9 mmol/L (3.5-5.1); SODIUM 136 mmol/L (136-145)
== END ==
LOC: C.LABUPHEI 08:52
PROVIDERS: ATTEND Nurse Practitioner Family
DX: J18.9 Pneumonia, unspecified organism (principal); I48.91 Unspecified atrial fibrillation

== ENCOUNTER → 2018-01-28 | Outpatient (CLI) | payer OTHER ==
[2018-01-28 08:25] LABS: BASO % 0.4 %; BASO ABS # 0.04 K/uL (0-0.2); EOS % 3.8 %; EOS ABS # 0.37 K/uL (0-0.5); HEMOGLOBIN 14.2 g/dL (14.0-18.0); IG# 0.03 K/uL (0.00-0.02); LYMPH % 11.3 %; MEAN CELL VOLUME 94.3 fL (80-100); MEAN CORPUSCULAR HEMOGLOBIN 32.6 pg (25-34); MEAN CORPUSCULAR HGB CONC 34.6 g/dl (32-36); MEAN PLATELET VOLUME 11.9 fL (7.4-10.4); MONO % 14.6 %; MONO ABS # 1.42 K/uL (0.11-0.59); NEUT % 69.6 %; NEUT ABS # 6.77 K/uL (1.4-6.5); PLATELET COUNT 322 K/uL (130-400); RED CELL DISTRIBUTION WIDTH CV 16.1 % (11.5-14.5); RED CELL DISTRIBUTION WIDTH SD 56.2 fL (36.4-46.3); WHITE BLOOD COUNT 9.73 K/uL (4.8-10.8)
[2018-01-28 08:39] LABS: INR 3.9 (0.9-1.1)
== END ==
LOC: C.LABUPHEI 08:12
PROVIDERS: ATTEND Nurse Practitioner Family
DX: I25.10 Atherosclerotic heart disease of native coronary artery without angina pectoris (principal); I50.9 Heart failure, unspecified; I48.91 Unspecified atrial fibrillation

== ENCOUNTER → 2018-01-30 | Outpatient (CLI) | payer OTHER ==
[2018-01-30 10:25] LABS: INR 3.4 (0.9-1.1)
== END ==
LOC: C.LABUPHEI 09:50
PROVIDERS: ATTEND Nurse Practitioner Family
DX: I48.91 Unspecified atrial fibrillation (principal)

== ENCOUNTER → 2018-01-31 | Outpatient (CLI) | payer OTHER ==
[2018-01-31 08:35] LABS: INR 3.2 (0.9-1.1)
== END ==
LOC: C.LABUPHEI 08:02
PROVIDERS: ATTEND Nurse Practitioner Family
DX: I48.91 Unspecified atrial fibrillation (principal)

== ENCOUNTER → 2018-02-03 | Outpatient (CLI) | payer OTHER | END | disposition home or self-care (01) | LOC: C.LABUPHEI 08:57 | PROVIDERS: ATTEND Nurse Practitioner Family | DX: Z95.2 Presence of prosthetic heart valve (principal) ==

== ENCOUNTER → 2018-02-06 | Outpatient (CLI) | payer OTHER ==
[2018-02-06 09:55] LABS: INR 1.3 (0.9-1.1)
== END ==
LOC: C.LABUPHEI 08:50
PROVIDERS: ATTEND Nurse Practitioner Family
DX: I48.91 Unspecified atrial fibrillation (principal)

== ENCOUNTER → 2018-02-08 | Outpatient (CLI) | payer OTHER ==
[2018-02-08 09:41] LABS: INR 1.2 (0.9-1.1)
== END | disposition home or self-care (01) ==
LOC: C.LABUPHEI 09:28
PROVIDERS: ATTEND Nurse Practitioner Family
DX: Z95.2 Presence of prosthetic heart valve (principal)

== ENCOUNTER → 2018-02-11 | Outpatient (CLI) | payer OTHER ==
[2018-02-11 08:50] LABS: INR 1.2 (0.9-1.1)
== END ==
LOC: C.LABUPHEI 07:51
PROVIDERS: ATTEND Nurse Practitioner Family
DX: I48.91 Unspecified atrial fibrillation (principal)

== ENCOUNTER → 2018-02-13 | Outpatient (CLI) | payer OTHER ==
[2018-02-13 10:19] LABS: INR 1.5 (0.9-1.1)
== END | disposition home or self-care (01) ==
LOC: C.LABUPHEI 09:22
PROVIDERS: ATTEND Nurse Practitioner Family
DX: I48.91 Unspecified atrial fibrillation (principal)

== ENCOUNTER → 2018-02-15 | Outpatient (CLI) | payer OTHER ==
[2018-02-15 08:20] LABS: INR 2.3 (0.9-1.1)
== END ==
LOC: C.LABUPHEI 12:48
PROVIDERS: ATTEND Nurse Practitioner Family
DX: I48.91 Unspecified atrial fibrillation (principal)

== ENCOUNTER → 2018-02-20 | Outpatient (CLI) | payer OTHER ==
[2018-02-20 10:04] LABS: INR 3.4 (0.9-1.1)
== END ==
LOC: C.LABUPHEI 09:20
PROVIDERS: ATTEND Nurse Practitioner Family
DX: I48.91 Unspecified atrial fibrillation (principal)

== ENCOUNTER → 2018-02-27 | Outpatient (CLI) | payer OTHER ==
[2018-02-27 09:17] LABS: INR 5.3 (0.9-1.1)
== END ==
LOC: C.LABUPHEI 08:38
PROVIDERS: ATTEND Nurse Practitioner Family
DX: I48.91 Unspecified atrial fibrillation (principal)

== ENCOUNTER → 2018-02-28 | Outpatient (CLI) | payer OTHER | LOC: C.LABUPHEI 08:14 | PROVIDERS: ATTEND Nurse Practitioner Family | DX: I48.91 Unspecified atrial fibrillation (principal) ==

== ENCOUNTER → 2018-03-01 | Outpatient (CLI) | payer OTHER ==
[2018-03-01 09:15] LABS: INR 5.1 (0.9-1.1)
== END | disposition home or self-care (01) ==
LOC: C.LABUPHEI 09:16
PROVIDERS: ATTEND Nurse Practitioner Family
DX: I48.91 Unspecified atrial fibrillation (principal)

== ENCOUNTER → 2018-03-03 | Outpatient (CLI) | payer OTHER ==
[2018-03-03 09:02] LABS: INR 3.8 (0.9-1.1)
== END ==
LOC: C.LABUPHEI 08:10
PROVIDERS: ATTEND Nurse Practitioner Family
DX: I48.91 Unspecified atrial fibrillation (principal)

== ENCOUNTER → 2018-03-05 | Outpatient (CLI) | payer OTHER ==
[2018-03-05 09:20] LABS: INR 3.4 (0.9-1.1)
== END ==
LOC: C.LABUPHEI 08:41
PROVIDERS: ATTEND Nurse Practitioner Family
DX: I48.91 Unspecified atrial fibrillation (principal)

== ENCOUNTER → 2018-03-06 | Outpatient (CLI) | payer OTHER ==
[2018-03-06 08:44] LABS: INR 2.5 (0.9-1.1)
== END | disposition home or self-care (01) ==
LOC: C.LABUPHEI 08:14
PROVIDERS: ATTEND Nurse Practitioner Family
DX: I48.91 Unspecified atrial fibrillation (principal)

== ENCOUNTER → 2018-05-01 | Outpatient (CLI) | payer OTHER ==
[~2018-05-01] MED LIST changes: -FLUO20SO PEG; +FLUO20SO9 PEG
[2018-05-01 09:23] LABS: INR 2.9 (0.9-1.1)
== END ==
LOC: C.LABUPHEI 08:46
PROVIDERS: ATTEND Nurse Practitioner Family
DX: I48.91 Unspecified atrial fibrillation (principal)

== ENCOUNTER → 2018-05-05 | Outpatient (CLI) | payer OTHER ==
[2018-05-05 09:20] LABS: INR 2.9 (0.9-1.1)
== END ==
LOC: C.LABUPHEI 08:53
PROVIDERS: ATTEND Nurse Practitioner Family
DX: I48.91 Unspecified atrial fibrillation (principal)

== ENCOUNTER → 2018-05-08 | Outpatient (CLI) | payer OTHER ==
[2018-05-08 10:28] LABS: INR 2.7 (0.9-1.1)
== END | disposition home or self-care (01) ==
LOC: C.LABUPHEI 09:41
PROVIDERS: ATTEND Nurse Practitioner Family
DX: I48.91 Unspecified atrial fibrillation (principal)

== ENCOUNTER 2019-02-15 08:18 | Inpatient (IN) ==
[2019-02-15 09:11] LABS: Basophils # (auto) 0.03 K/uL (0-0.2); Basophils % (auto) 0.2 %; Eosinophils # (auto) 0.07 K/uL (0-0.5); Eosinophils % (auto) 0.4 %; Hematocrit (blood only) 41.5 % (42-52); Hemoglobin 14.1 g/dL (14.0-18.0); Immature Granulocytes # (auto) 0.07 K/uL (0.00-0.02); Immature Granulocytes % (auto) 0.4 %; Lymphocytes % (auto) 6.2 %; Mean Platelet Volume 11.9 fL (7.4-10.4); Monocytes % (auto) 3.1 %; Neutrophils # (auto) 14.46 K/uL (1.4-6.5); Neutrophils % (auto) 89.7 %; Platelet Count 285 K/uL (130-400); RDW Coefficient of Variation 14.2 % (11.5-14.5); RDW Standard Deviation 50.6 fL (36.4-46.3); Red Blood Count 4.28 M/uL (4.7-6.1); White Blood Count 16.13 K/uL (4.8-10.8)
--- NOTE | 2019-02-15 09:22 | XRay Report ---
SINGLE VIEW CHEST CLINICAL HISTORY: Sepsis. FINDINGS: An AP, portable, upright chest radiograph is compared to study dated 01/09/2016. The examina tion is degraded by portable technique and patient rotation. The heart is enlarged and there is athe rosclerotic calcification of the thoracic aorta. The pulmonary vasculature is noncongested. Chronic i nterstitial thickening is similar to previous. There are low lung volumes with bibasilar atelectasis. No airspace consolidation or large pleural effusion is identified. No pneumothorax is seen. The skel etal structures are osteopenic. There are healed left-sided rib fractures. Fusion hardware is noted i n the lower cervical spine. IMPRESSION: Cardiac enlargement with no acute cardiopulmonary abnormality. Electronically signed by: Ervin Dunlap M.D. 02/15/2019 9:21 AM
[2019-02-15 09:27] LABS: INR 2.6 (0.9-1.1); Partial Thromboplastin Ratio 1.3; Partial Thromboplastin Time 34.5 Seconds (21.0-31.0); Prothrombin Time 24.6 Seconds (9.0-12.0)
[2019-02-15 09:30] LABS: Albumin Level 3.4 gm/dl (3.4-5.0); BUN Creatinine Ratio 16.5 (10-20); Calcium 9.4 mg/dl (8.5-10.1); Creatinine Clr Calc Pharmacy 79.5 ml/min; Est GFR (African American) 103.3; Est GFR (Non-African American) 89.1; Potassium 4.2 mmol/L (3.5-5.1)
[2019-02-15 09:33] LABS: Albumin Globulin Ratio 0.9 (0.9-2); Bilirubin,Total 0.5 mg/dl (0.2-1); Globulin 3.6 gm/dl (2.5-4.0)
[2019-02-15] MEDS ORDERED: PIPERACILL/TAZOBAC CONSULT ACTIVE PRN ×2 (10:09→15:25)
[2019-02-15] MEDS ORDERED: PIPERACILLIN/TAZOBACTAM 4.5 GM/120 ML BAG IV ONE (10:09)
--- NOTE | 2019-02-15 11:06 | History & Physical Report ---
Date of Service February 15, 2019 Assessment & Plan (1) Hypoxia: Acute respiratory failure hypoxia with suspected aspiration. The patient may not yet developed x-ray changes of aspiration pneumonia or pneumonitis due to the acuity of the injury. We will supplement oxygen will attempt nasotrachea l suctioning applied Zosyn therapy as coverage for possible anaerobic pneumonia. Patient on repeat chest x-ray in 24 hours. At this point time we will not need bronchodilators as he does not have a significant history of chronic lung disease at this point although chest x-ray does suggest some persistent interstitial changes perhaps from recurrent aspiration. (2) Aphasia: Patient is known aspiration risk he is on G-tube feedings because of this will be kept n.p.o. with all meds via the G-tube, patient typically is on Jevity 1.560 cc an hour from 2100 until noon is 270 cc of free water flushes per shift with 30 cc of free water flushes with each medicine (3) Hypertension: Patient blood pressures typically controlled with metoprolol. The patient has history of atrial fibrillation this is also rate controlled with metoprolol and anticoagulated with warfarin of which she is therapeutic on admission with an INR of 2.6 (4) History of mitral valve replacement with mechanical valve: As mentioned patient patient with history of mechanical mitral valve murmurs heard on exam there is not a brisk click however he is not having any overt signs of any type of heart failure he is maintained on warfarin therapy at this time at 4 mg a day (5) TBI (traumatic brain injury): With the patient's traumatic brain injury he is maintained on as needed Haldol for agitation usually before procedures Seroquel at bedtime pramipexole once a day and an antidepressant fluoxetine 20 History of Present Illness Primary Care Provider: [facility] 68-year-old male resident of [facility] who presents after an episode of apparent aspiration, the patient is chronically tube fed, the patient had acute respiratory failure with hypoxia. The patient was rescued with supplemental oxygen. Patient previously has had a traumatic brain injury with subarachnoid hemorrhage and he is tube feed dependent and a DNR. Reportedly the patient takes nocturnal feedings, he was found lying in an awkward position in his bed with concern for aspiration by his respiratory sounds he was sent here emergently from the heart side. His initial evaluation shows a leukocytosis, lactic acid 2.5 however his chest x-ray is not immediately abnormal. Patient be admitted for suspected aspiration pneumonia or pneumonitis and supportively acute respiratory failure with hypoxia Allergies Allergy/AdvReac Type Severity Reaction Status Date / Time No Known Allergies Allergy Mild Verified 01/09/16 08:01 Home Medications Home Medications Medication Instructions Recorded Confirmed Type doxazosin 2 mg PO DAILY 02/15/19 02/15/19 History esomeprazole magnesium 20 mg PO DAILY 02/15/19 02/15/19 History haloperidol lactate 1 dose PO DIRECTED 02/15/19 02/15/19 History metoclopramide HCl 5 mg PO DAILY 02/15/19 02/15/19 History metoprolol tartrate 50 mg PO DAILY 02/15/19 02/15/19 History potassium chloride 0 mg PO DAILY 02/15/19 02/15/19 History pramipexole 1 tab PO DAILY 02/15/19 02/15/19 History quetiapine 100 mg PO DAILY 02/15/19 02/15/19 History warfarin 4 mg PO DAILY 02/15/19 02/15/19 History Past Med/Surg History Medical History Subarachnoid hemorrhage (Resolved) TBI (traumatic brain injury) (Chronic) Aphasia (Chronic) Syncope (Acute) Hypotension (Acute) Elevated troponin (Acute) History of atrial fibrillation (Chronic) Hypertension (Chronic) BPH (benign prostatic hypertrophy) (Chronic) Hepatitis C (Chronic) History of mitral valve replacement with mechanical valve (Chronic) Altered mental status (Acute) Bronchitis (Acute) History of traumatic brain injury (Acute) Hypoxia (Acute) UTI (urinary tract infection) (Acute) Surgical History Status post mitral valve replacement (Chronic) Status post craniotomy (Chronic) Status post gastrostomy (Chronic) "PEG" Status post splenectomy (Chronic) Status post tracheostomy (Chronic) Family History Other Family history non-contributory Social History Preferred Language: Polish marital status: Current Living Situation: Personal Care Facility Current Living Situation Comment: [facility] current occupational status: retired Feels Safe at Home: Yes Smoking Status: Never smoker Review of Systems Review of Systems: Unobtainable due to cognitive status His is at the bedside and although he cannot supply review of systems she states he has been in his reasonable stable chronic ill state over the last few weeks in fact he has been gaining weight and his tube feeds and the rate has been reduced Physical Exam Physical Exam: The patient appeared chronically ill he was noncommunicative Vital signs as documented. Head exam is unremarkable. normocephalic, atraumatic his right eye is erythematous with some discharge Neck is without jugular venous distension, thyromegaly, or lymphademopathy he has upper airway breath sounds and grunting Lungs are clear to to the bases but has upper airway breath sounds otherwise Cardiac exam reveals irregular but rate controlled systolic ejection murmurs heard Abdomen reveals G-tube in left upper quadrant site slightly red bowel sounds are normal abdomen is soft no masses, no organomegaly Extremities are nonedematous and both pedal pulses are present Neurologic exam is alert but noncommunicative does not follow commands spontaneously moves all extremities, Psychologically seems anxious at times Skin is warm Dry without bruises or lesions Results & Data Vital Signs (Past 12 Hours) Vital Signs Temp Pulse Pulse Resp BP BP Pulse Ox 02/15/19 10:14 96 H 21 125/85 93 02/15/19 09:30 93 H 22 108/79 92 02/15/19 08:45 99 H 23 119/80 94 02/15/19 08:33 36.9 C 02/15/19 08:26 99 H 23 120/84 88 L Diagnostic Findings Chest x-ray does not show any immediately changes EKG shows rate controlled atrial fibrillation
[2019-02-15] MEDS ORDERED: ONDANSETRON INJ 2 MG/ML 2 ML VIAL IV PRN (15:25)
[2019-02-15] MEDS ORDERED: SODIUM CHLORIDE 0.9% 1000ML 1,000 ML IV SCH (15:25)
[2019-02-15] MEDS ORDERED: PIPERACILLIN/TAZOBACTAM 4.5 GM in DEXTROSE 5% 100 ML IV STA (15:25)
[2019-02-15] MEDS ORDERED: HALOPERIDOL 2 MG/1 ML UDP GT PRN (15:25)
--- NOTE | 2019-02-15 15:41 | Emergency Department Note ---
Entered by Yahaira Briseno acting as a scribe for History of Present Illness General Chief complaint: Respiratory Problems Time Seen by Provider: 02/15/19 08:27 Source: family () and EMS Mode of arrival: EMS History of Present Illness Onset (ago): day(s) (last night) Location: chest Pain Consistency: + other (episode) Maximum Pain Intensity: 0 Quality: + other (shortness of breath) Associated symptoms: + other (aspiration) The patient is a 68 year old male that is presenting to the Emergency Room with complaints of an episode of respiratory issues that started last night. The patient is a resident at [facility] and [facility]. EMS reports that the patient was found lying on his side on the floor this morning and is believed to have aspirated. The patient is non-responsive at baseline. EMS notes that [facility] stated that the patients O2 saturation level was at 60% this morning. EMS reports that the patient received a duoneb at [facility]. The patient has a history of aphasia and subarachnoid hemorrhages. The patient is on Coumadin. The patient is full code with limited intervention. EMS states they are unsure of his baseline neurological status. The HPI and ROS are limited due to the patients mental status. Home Medications Home Medications Medication Instructions Recorded Confirmed Type doxazosin 2 mg PO DAILY 02/15/19 02/15/19 History esomeprazole magnesium 20 mg PO DAILY 02/15/19 02/15/19 History haloperidol lactate 1 dose PO DIRECTED 02/15/19 02/15/19 History metoclopramide HCl 5 mg PO DAILY 02/15/19 02/15/19 History metoprolol tartrate 50 mg PO DAILY 02/15/19 02/15/19 History potassium chloride 0 mg PO DAILY 02/15/19 02/15/19 History pramipexole 1 tab PO DAILY 02/15/19 02/15/19 History quetiapine 100 mg PO DAILY 02/15/19 02/15/19 History warfarin 4 mg PO DAILY 02/15/19 02/15/19 History Allergies Allergy/AdvReac Type Severity Reaction Status Date / Time No Known Allergies Allergy Mild Verified 01/09/16 08:01 Past Med/Surg History Family History Other Family history non-contributory Social History Preferred Language: Dutch Communication Ability: non verbal Beliefs That Will Affect Care: None marital status: Current Living Situation: Personal Care Facility Current Living Situation Comment: [facility] current occupational status: retired Other Information That Helps Us Care for You: No Feels Safe at Home: Yes Safety Concerns: Feels Safe At This Time Smoking Status: Former smoker Hx Alcohol Use: No Hx Substance Use: No Review of Systems See HPI for pertinent positives & negatives. The HPI and ROS are limited due to the patient's mental status. Physical Exam Vital Signs Vital Signs - 24 hr 02/15/19 08:26 02/15/19 08:33 02/15/19 08:45 Temperature 36.9 C Temperature Source Axillary Sepsis Recent Fever Within 48 Hours No Sepsis New/Unexplained Change in Mental Status No Sepsis Action Taken by Nursing No Action Required Pulse Rate 99 H Pulse Rate [Apical] 99 H Pulse Rate [Left Brachial] Pulse Rhythm Regular Pulse Rhythm [Apical] Regular Pulse Strength Normal Pulse Strength [Apical] Respiratory Rate 23 23 Respiratory Effort / Characteristics Spontaneous Grunting Spontaneous Grunting Respiratory Depth Normal Respiratory Pattern Regular Regular Blood Pressure 120/84 Blood Pressure [Left Arm] Blood Pressure [Right Arm] 119/80 Blood Pressure Mean 96 Blood Pressure Mean [Left Arm] Blood Pressure Mean [Right Arm] 93 Blood Pressure Position [Right Arm] Pulse Oximetry 88 L 94 Oxygen Delivery Method Room Air Nasal Cannula Oxygen Flow Rate 5 02/15/19 08:49 02/15/19 09:30 02/15/19 10:14 Temperature Temperature Source Sepsis Recent Fever Within 48 Hours Sepsis New/Unexplained Change in Mental Status Sepsis Action Taken by Nursing Pulse Rate Pulse Rate [Apical] 93 H 96 H Pulse Rate [Left Brachial] Pulse Rhythm Pulse Rhythm [Apical] Regular Regular Pulse Strength Pulse Strength [Apical] Respiratory Rate 22 21 Respiratory Effort / Characteristics Spontaneous Spontaneous Spontaneous Respiratory Depth Normal Respiratory Pattern Regular Regular Regular Blood Pressure Blood Pressure [Left Arm] Blood Pressure [Right Arm] 108/79 125/85 Blood Pressure Mean Blood Pressure Mean [Left Arm] Blood Pressure Mean [Right Arm] 88 98 Blood Pressure Position [Right Arm] Pulse Oximetry 92 93 Oxygen Delivery Method Nasal Cannula Nasal Cannula Oxygen Flow Rate 5 5 02/15/19 11:26 02/15/19 12:24 02/15/19 15:00 Temperature 36.8 C 37 C Temperature Source Oral Oral Sepsis Recent Fever Within 48 Hours Sepsis New/Unexplained Change in Mental Status Sepsis Action Taken by Nursing Pulse Rate 98 H Pulse Rate [Apical] 102 H Pulse Rate [Left Brachial] 103 H Pulse Rhythm Pulse Rhythm [Apical] Regular Pulse Strength Pulse Strength [Apical] Normal Respiratory Rate 21 22 16 Respiratory Effort / Characteristics Non-Labored Spontaneous Respiratory Depth Deep Respiratory Pattern Regular Blood Pressure 141/92 H Blood Pressure [Left Arm] 129/82 Blood Pressure [Right Arm] 151/114 H Blood Pressure Mean Blood Pressure Mean [Left Arm] 97 Blood Pressure Mean [Right Arm] 126 Blood Pressure Position [Right Arm] Lying Pulse Oximetry 93 91 93 Oxygen Delivery Method Nasal Cannula Nasal Cannula Nasal Cannula Oxygen Flow Rate 5 5 5 General: Chronically-ill appearing older male in no acute distress. Eyes are closed and patient is non-verbal at baseline. HEENT: Normal cephalic atraumatic. Pupils are equal round and reactive to light. Extraocular movements are intact. Oropharynx is pink with moist mucous membranes. No swelling of the mouth lips or tongue. Neck: Supple with a midline trachea. No meningeal signs or stiffness, no JVD or bruits. No Stridor. Chest: Clear to auscultation bilaterally. No wheezes. No increased work of estela athing. Rhonchorous breath sounds and gurgling sounds in the throat. Gurgling in lungs bilaterally. Heart: regular rate and rhythm. Abdomen: Soft nontender, nondistended without rebound guarding or rigidity. Extremities: No cyanosis clubbing or edema. No calf tenderness or asymmetry Spine/Back. Non tender to palpation. No CVA tenderness Skin: Good turgor without rashes. Neurologic exam: Cranial nerves two through 12 are intact. Motor and sensation are intact and symmetrical throughout. Baseline weakness of right side. Course 0830:The patient was evaluated in room B06. A complete history and physical examination was performed. 0905: I spoke with the patient's who informed me that the patient is DNR. She states they have discussed it at length. 1020: I checked on the patient who appears to be more awake and alert. He is currently receiving antibiotics and receiving treatment well. 1035: I discussed the patient's [place] [facility] [place] will [place] the patient for further management and care. 1040: Upon reevaluation, the patient is resting comfortably. I discussed laboratory and radiographic results with the patient. He verbalized agreement of the treatment plan. The patient will be evaluated for further management and care. Consultations Consultation #1: I discussed the patient's case with [place]. Sidhu, [facility] who will evaluate the patient for further management and care. Time: 10:35 Administered Medications Discontinued Medications Piperacillin Sod/Tazobactam Sod (Zosyn) 4.5 gm in 120 mls @ 240 mls/hr IV NOW ONE Stop: 02/15/19 10:38 Last Infusion: 02/15/19 10:56 Dose: 0 mls/hr Documented by: [id number] Admin: 02/15/19 10:18 Dose: 240 mls/hr Documented by: [id number] Medical Decision Making Differential Diagnosis Differential diagnosis includes: Etiologies such as aspiration pneumonia, sepsis, CHF, cardiac disease, electrolyte or metabolic abnormalities as well as others were entertained. Medical Records Attestation: I reviewed the patient's medical records. Home Medications Current Medication List: was personally reviewed by me Laboratory Data Attestation: I reviewed the patient's lab results. Result diagrams: 02/15/19 08:59 02/15/19 08:59 Lab Results 02/15/19 02/15/19 02/15/19 Range/Units 08:59 08:59 08:59 WBC 16.13 H (4.8-10.8) K/uL RBC 4.28 L (4.7-6.1) M/uL Hgb 14.1 (14.0-18.0) g/dL Hct 41.5 L (42-52) % MCV 97.0 (80-100) fL MCH 32.9 (25-34) pg MCHC 34.0 (32-36) g/dL RDW Std Deviation 50.6 H (36.4-46.3) fL RDW Coeff of Kristal 14.2 (11.5-14.5) % Plt Count 285 (130-400) K/uL MPV 11.9 H (7.4-10.4) fL Immature Gran % (Auto) 0.4 % Neut % (Auto) 89.7 % Lymph % (Auto) 6.2 % [place] % (Auto) 3.1 % Eos % (Auto) 0.4 % Baso % (Auto) 0.2 % Immature Gran # (Auto) 0.07 H (0.00-0.02) K/uL Neut # (Auto) 14.46 H (1.4-6.5) K/uL Lymph # (Auto) 1.00 L (1.2-3.4) K/uL [place] # (Auto) 0.50 (0.11-0.59) K/uL Eos # (Auto) 0.07 (0-0.5) K/uL Baso # (Auto) 0.03 (0-0.2) K/uL PT 24.6 H (9.0-12.0) Seconds INR 2.6 H (0.9-1.1) APTT 34.5 H (21.0-31.0) Seconds PTT Ratio 1.3 Sodium 140 (136-145) mmol/L Potassium 4.2 (3.5-5.1) mmol/L Chloride 106 (98-107) mmol/L Carbon Dioxide 29 (21-32) mmol/L Anion Gap 5.0 (3-11) BUN 14 (7-18) mg/dl Creatinine 0.86 (0.6-1.4) mg/dl Est Cr Clr Drug Dosing 79.5 ml/min Est GFR ( Amer) 103.3 Est GFR (Non-Af Amer) 89.1 BUN/Creatinine Ratio 16.5 (10-20) Glucose 141 H (70-99) mg/dl Lactate (0.4-2.0) mmol/L Calcium 9.4 (8.5-10.1) mg/dl Total Bilirubin 0.5 (0.2-1) mg/dl AST 47 H (15-37) U/L ALT 40 (12-78) U/L Alkaline Phosphatase 118 H (45-117) U/L Total Protein 7.0 (6.4-8.2) gm/dl Albumin 3.4 (3.4-5.0) gm/dl Globulin 3.6 (2.5-4.0) gm/dl Albumin/Globulin Ratio 0.9 (0.9-2) 02/15/19 Range/Units 08:59 WBC (4.8-10.8) K/uL RBC (4.7-6.1) M/uL Hgb (14.0-18.0) g/dL Hct (42-52) % MCV (80-100) fL MCH (25-34) pg MCHC (32-36) g/dL RDW Std Deviation (36.4-46.3) fL RDW Coeff of Kristal (11.5-14.5) % Plt Count (130-400) K/uL MPV (7.4-10.4) fL Immature Gran % (Auto) % Neut % (Auto) % Lymph % (Auto) % [place] % (Auto) % Eos % (Auto) % Baso % (Auto) % Immature Gran # (Auto) (0.00-0.02) K/uL Neut # (Auto) (1.4-6.5) K/uL Lymph # (Auto) (1.2-3.4) K/uL [place] # (Auto) (0.11-0.59) K/uL Eos # (Auto) (0-0.5) K/uL Baso # (Auto) (0-0.2) K/uL PT (9.0-12.0) Seconds INR (0.9-1.1) APTT (21.0-31.0) Seconds PTT Ratio Sodium (136-145) mmol/L Potassium (3.5-5.1) mmol/L Chloride (98-107) mmol/L Carbon Dioxide (21-32) mmol/L Anion Gap (3-11) BUN (7-18) mg/dl Creatinine (0.6-1.4) mg/dl Est Cr Clr Drug Dosing ml/min Est GFR ( Amer) Est GFR (Non-Af Amer) BUN/Creatinine Ratio (10-20) Glucose (70-99) mg/dl Lactate 2.5 H* (0.4-2.0) mmol/L Calcium (8.5-10.1) mg/dl Total Bilirubin (0.2-1) mg/dl AST (15-37) U/L ALT (12-78) U/L Alkaline Phosphatase (45-117) U/L Total Protein (6.4-8.2) gm/dl Albumin (3.4-5.0) gm/dl Globulin (2.5-4.0) gm/dl Albumin/Globulin Ratio (0.9-2) Imaging Data Radiologist's Impression: Radiology results as stated below per my review and the radiologist's interpretation: SINGLE VIEW CHEST CLINICAL HISTORY: Sepsis. FINDINGS: An AP, portable, upright chest radiograph is compared to study dated 01/09/2016. The examination is degraded by portable technique and patient rotation. The heart is enlarged and there is atherosclerotic calcification of the thoracic aorta. The pulmonary vasculature is noncongested. Chronic interstitial thickening is similar to previous. There are low lung volumes with bibasilar atelectasis. No airspace consolidation or large pleural effusion is identified. No pneumothorax is seen. The skeletal structures are osteopenic. There are healed left-sided rib fractures. Fusion hardware is noted in the lower cervical spine. IMPRESSION: Cardiac enlargement with no acute cardiopulmonary abnormality. Electronically signed by: Ervin Dunlap M.D. 02/15/2019 9:21 AM ECG Data Attestation: I personally reviewed and interpreted this ECG as follows: Indication: SOB/dyspnea Rate (beats per minute): 98 Rhythm: normal sinus Findings: + other (low voltage), + PVC and + prolonged QT (mildly); no ST depression, no ST elevation and no acute ischemic change Comparison ECG Date: from (01/09/2016) Change: the following changes noted (PVCs are now present) Blood Pressure Blood Pressure Findings: Normal blood pressure MDM Narrative This patient comes in as described above. He is a patient of the heart size and has a history of a brain injury requiring significant care there. He does have a PEG tube for feeding. He was found with a decreased O2 sat 60s and they worried he was asked had aspirated. he has been having some gurgling respirations recently. He was placed on supplemental oxygen here and was brought in by EMS on oxygen. We did a full sepsis work-up. His chest x-ray does not show a definite infiltrate however he does have a elevated white count and lactic acid of 2.9. I did give him Zosyn 4.5 g IV. I do suspect that he may have aspirated and it may not be visible yet on the x-ray. EKG does not suggest acute coronary syndrome or arrhythmias. no significant electrolyte or metabolic abnormalities. While he was here his did show up and the patient is much more awake, he opens his eyes and is at his normal neurologic baseline. He has baseline right-sided weakness. She does tell me that he is a DO NOT RESUSCITATE and would not want any heroic measures or prolonged measures either. He will be admitted for further treatment and evaluation. Impression & Plan Hypoxemia, Aspiration into airway, Bronchitis, History of traumatic brain injury Discharge Plan Visit Data *Final* Discharge Date/Time: 02/15/19 11:26 Chief Complaint: Respiratory Problems ED Provider: Reggie Schmitz Discharge Problem: Hypoxemia, Aspiration into airway, Bronchitis, History of traumatic brain injury Patient Disposition: Admitted As Inpatient Discharge Instructions Interventions: ED Discharge Assessment Last Done: 02/15/19 11:26 The scribe's documentation has been prepared under my direction and personally reviewed by me in its entirety. I confirm that the note above accurately reflects all work, treatment, procedures, and medical decision making performed by me.
[2019-02-15] MEDS ORDERED: [UNRECOGNIZED DRUG - REMARK] PRN (15:42)
[2019-02-15] MEDS: WARFARIN SOD 4 MG TAB PO SCH (17:22)
[2019-02-15] MEDS: PIPERACILLIN/TAZOBACTAM 3.375 GM in DEXTROSE 5% 100 ML IV SCH (17:22)
[2019-02-15] MEDS ORDERED: cloNIDine HCl 0.1 MG TAB GT PRN (19:21)
[2019-02-15] MEDS ORDERED: MoRPHine SULFATE 2 MG/ML CARP IV PRN (19:21)
[2019-02-15] MEDS ORDERED: ACETAMINOPHEN 1,000 MG/100 ML VIAL IV PRN (19:21)
[2019-02-15] MEDS ORDERED: MoRPHine SULFATE 2 MG/ML CARP ONE (19:23)
[2019-02-15] MEDS ORDERED: VANCOMYCIN CONSULT ACTIVE PRN (19:30)
[2019-02-15] MEDS: ALBUT/IPRATROP 3MG/0.5MG NEB 3 ML VIAL NEB SCH ×2 (19:37→23:10)
[2019-02-15] MEDS ORDERED: VANCOMYCIN HCL 1,750 MG in SODIUM CHLORIDE 0.9% 500 ML IV ONE (19:45)
[2019-02-15 19:52] LABS: HCO3 ABG 24 mmol/L (19-24); Oxygen Saturation ABG 94.7 % (90-95); PCO2 ABG 42 mmHg (35-46); PO2 ABG 76 mm/Hg (80-95); pH ABG 7.37 (7.35-7.45)
[2019-02-15 19:54] LABS: Allen Test Pos (Pos)
--- NOTE | 2019-02-15 19:58 | Pharmacy Report ---
Pharmacy Abx Initial Consult - Date of Service February 15, 2019 - Pharmacy Dosing Scope Date of Consult: 5-5 Consultation requested by: Dr. Sidhu Pharmacy is consulted to initiate vancomycin/zosyn dosing therapy, order appropriate labs and adjust drug dose/frequency. - Subjective The patient is a 68 year old M admitted on 02/15/19 10:50. - Objective Height: 5 ft 8 in Weight: 74.8 kg Lab Results (24hrs): Laboratory Tests (24 Hours) 02/15/19 02/15/19 08:59 08:59 WBC 16.13 H Neut # (Auto) 14.46 H Creatinine 0.86 Est Cr Clr Drug Dosing 79.5 Micro Results: 02/15/19 09:19 Blood Culture - Pending Blood 02/15/19 08:59 Blood Culture - Pending Blood - Risk Factors for Resistance * Resident in a [facility] or extended-care facility - Assessment & Plan Assessment/Plan: Patient on vancomycin and zosyn for possible pneumonia. Blood cultures x 2 are pending. Patient resident of personal care facility. Hx G-tube and chronically on tube feeds, hx of TBI (notes state nonresponsive at baseline). Concern for aspiration pneumonia. Vancomycin: * 1750 mg x 1 ordered for loading dose (~23 mg/kg) * Will start maintenance dose of vancomycin 1250 mg (~16 mg/kg) iv q 12 hrs to achieve an estimated trough ~15-20 mcg/ml (goal for pneumonia) * Estimated kinetics: t1/2~10 hrs, ke~0.07 hr-1, CrCl ~79 (appears to be baseline Scr) * Will plan to obtain trough prior to the 0800 dose on 02/17 to ensure therapeutic Zosyn: * 3.375 gm iv q 8 hrs - appropriate for CrCl >20 ml/min Pharmacy will continue to follow and will adjust dose/frequency as necessary. Thank you.
[2019-02-15] MEDS ORDERED: FUROSEMIDE 40 MG in SYRINGE 0 ML IV ONE (20:00)
--- NOTE | 2019-02-15 20:08 | XRay Report ---
SINGLE VIEW CHEST CLINICAL HISTORY: Respiratory distress. FINDINGS: An AP, portable, upright chest radiograph is compared to performed earlier the same day 02/15. The examination is degraded by portable technique and patient rotation. The heart is enlarged and there is atherosclerotic calcification of the thoracic aorta. There is prominence of the central pulmonary vessels. Chronic interstitial thickening is similar to previous. There are low lung volume s with bibasilar atelectasis. No airspace consolidation or large pleural effusion is identified. No p neumothorax is seen. The skeletal structures are osteopenic. There are healed left-sided rib fracture s. Fusion hardware is noted in the lower cervical spine. IMPRESSION: 1. Cardiomegaly with prominence of the central pulmonary vessels. Correlate clinically for evidence o f mild congestive failure. 2. There is no airspace consolidation or large pleural effusion. Electronically signed by: Ervin Dunlap M.D. 02/15/2019 8:07 PM
[2019-02-15] MEDS: GENTAMICIN SULFATE 0.3% OP SOLN 5 ML BTL OPR SCH (20:23)
[2019-02-15] MEDS: QUETIAPINE FUMARATE 100 MG TABLET PO SCH (20:24)
[2019-02-16] MEDS: PIPERACILLIN/TAZOBACTAM 3.375 GM in DEXTROSE 5% 100 ML IV SCH ×3 (01:49→16:54)
[2019-02-16] MEDS: LORazepam 0.5 MG/1 ML VIAL IV PRN (01:49)
[2019-02-16] MEDS: ALBUT/IPRATROP 3MG/0.5MG NEB 3 ML VIAL NEB SCH ×6 (03:12→23:03)
[2019-02-16 05:35] LABS: Hematocrit (blood only) 39.6 % (42-52); Hemoglobin 13.5 g/dL (14.0-18.0); Mean Corpuscular Hgb Conc 34.1 g/dL (32-36); Mean Corpuscular Volume 96.1 fL (80-100); Mean Platelet Volume 11.6 fL (7.4-10.4); Platelet Count 265 K/uL (130-400); RDW Coefficient of Variation 14.1 % (11.5-14.5); RDW Standard Deviation 49.7 fL (36.4-46.3); Red Blood Count 4.12 M/uL (4.7-6.1); White Blood Count 18.17 K/uL (4.8-10.8)
[2019-02-16 05:47] LABS: INR 2.4 (0.9-1.1); Prothrombin Time 23.5 Seconds (9.0-12.0)
[2019-02-16 06:10] LABS: BUN Creatinine Ratio 16.1 (10-20); Calcium 8.9 mg/dl (8.5-10.1); Creatinine Clr Calc Pharmacy 67.1 ml/min; Est GFR (African American) 87.1; Est GFR (Non-African American) 75.2; Potassium 3.6 mmol/L (3.5-5.1)
[2019-02-16] MEDS: METOPROLOL TARTRATE 50 MG TAB PEG SCH (07:43)
[2019-02-16] MEDS: DOXAZosin MESYLATE TAB 2 MG TAB PEG SCH (07:44)
[2019-02-16] MEDS: POTASSIUM CHLORIDE 20 MEQ/15 ML UDC PEG SCH (07:44)
[2019-02-16] MEDS: PSYLLIUM 58.6% POWDER PACKET PO SCH (07:45)
[2019-02-16] MEDS: LANSOPRAZOLE 30 MG SOLTAB PEG SCH (07:45)
[2019-02-16] MEDS: PRAMIPEXOLE DIHYDROCHLO 0.25 MG TAB PO SCH (07:52)
[2019-02-16] MEDS: GENTAMICIN SULFATE 0.3% OP SOLN 5 ML BTL OPR SCH ×2 (07:53→20:57)
[2019-02-16] MEDS: METOCLOPRAMIDE HCL 5 MG/5 ML UDP PEG SCH (07:53)
[2019-02-16] MEDS ORDERED: VANCOMYCIN HCL 1,250 MG in SODIUM CHLORIDE 0.9% 250 ML IV SCH (08:00)
[2019-02-16] MEDS ORDERED: DOXAZosin MESYLATE TAB 2 MG TAB GT SCH (09:00)
[2019-02-16] MEDS ORDERED: METOCLOPRAMIDE HCL 5 MG/5 ML UDP PO SCH (09:00)
[2019-02-16] MEDS ORDERED: POTASSIUM CHLORIDE 20 MEQ/15 ML UDC GT SCH (09:00)
--- NOTE | 2019-02-16 16:02 | Medical Student Progress Note ---
Date of Service February 16, 2019 Assessment & Plan (1) Acute respiratory failure: Pt has hx of aspiration pneumonia and continues to have RF for aspiration pneumonia due to aphasia and PEG placement. Pt also has a hx of reflux as he is on Metoclopramide. Will get U/A to r/o UTI. 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 Keep NPO, on Peg tube feeding: On Jerity 1.560 cc an hr from 2100 till noon, 270 cc of free water flushes per shift, 30 cc flush w/ medicine continue home meds: metoclopramide, odanesterone, lasoprazole started on metamucil to keep bowels regular (3) Hypertension: on metoprolol for blood pressure control, also taking for rate control started on clonidine during admission since he had elevated readings (4) History of atrial fibrillation: anticoagulated on coumadin INR therapeutic at 2.4 rate controlled on metoprolol telemetry recorded sinus tachycardia overnight and throughout day (5) History of mitral valve replacement with mechanical valve: not showing signs of heart failure clinically although cxr suggestion pulmonary vessel prominence continue to monitor and look for signs of fluid overload on coumadin, therapeutic (6) TBI (traumatic brain injury): on halodol, quitiepene at home for agitation, continue in hospital lorazepam and morphine ordered prn for agitation as well pt taking fluoxetine for depression, continue & pramiprexole for restless leg, continue Supervising Attestation See my note for details Subjective Pt is a 68 yo M w/ a pmh of subarachnoid hemmorhage who is aphasic and tube feed dependant on day 2 of his admission for acute hypoxemic respiratory failure. Pt is a resident a the [facility] and had developed signs of respiratory distress and was found to have a pulse ox in the 60s. Upon admission to the ED, he was on a duoneb and was satting in the high 80s. In the Ed, pt was found to have leukocytosis and an elevated lactic acid of 2.5. Today, pt is doing okay. Nursing stated that the patient appeared agitated in the morning. Pt is aphasic and altered at baseline and was sleeping. The provided the history and stated that the pt has a hx of aspiration pneumonia. adds that pt had been drooling and coughing more than usual. did share the concern of pt developing a UTI since he has a hx of UTI. At baseline, pt does ambulate out of bed to and from the bathroom. Pt has right sided weakness, left side is strong, and has a hx of agitation. ROS: unable to obtain since pt is aphasic, denies pt complaining of si/sx of fever/chills, headache, dizziness, vision changes, syncope, n/v, sob, chest pain, abdominal pain, changes in urination, changes in bowel movements, diarrhea, constipation pmh: afib, bph, hep c, mitral valve replacement with mechanical valve meds: doxazosin, esomeprazole, haloperidol, metoclopramide, metoprolol, kcl, pra mipexole quitiepene, coumadin allergies: none surgical hx: mitral valve replacement, craniotomy, gastromy for peg, splenectomy, tracheostomy Physical Exam Vital Signs (Past 24 Hours): Last Vital Signs Temp 37.4 C 02/16/19 15:18 Pulse 84 02/16/19 15:18 Resp 16 02/16/19 15:18 BP 119/83 02/16/19 15:18 Pulse Ox 92 02/16/19 15:18 Constitutional: well developed, well nourished, sleeping in the bed Neck: trachea midline, no thyromegaly Respiratory: normal respiratory effort course breath sounds on anterior lung exam, posterior lung exam was not performed due to pt agitation and refusal to follow commands Cardiovascular: tachycardic, regular rhythm, no rubs, murmurs, gallops, mechanical heart valve audible, no signs of JVD, no carotid bruit, symmetric, palpable pulses Gastrointestinal (Abdomen): normal bowel sounds, soft, nontender, no hepatosplenomegaly Peg tube appears clean and dry, no sign of infection Musculoskeletal: IV left hand Neurologic: aphasic, altered, R. sided weakness Results & Data Laboratory Results WBC: 18.17, RBC 4.12, Hgb: 13.5, Hct 39.6 Sodium 140, K: 3.6, Cl 106, HCO3 29, BUN 16, Cr 1.02, Glu 120 PT 23.5, INR 2.4 neutrophils 02/15: 14.42 Blood gases 02/15: stable lactate 02/15: 2.5 02/15 AST 47 02/15 Alk Phos 118 Blood cultures: pending Diagnostic Findings CXR 02/15 8:00 & 19:00 unchanged, no signs of pulmonary infiltrate, there was more prominence of pulmonary vesels in the second CXR EKG: unchanged from 2016
[2019-02-16] MEDS: WARFARIN SOD 4 MG TAB PO SCH (16:49)
--- NOTE | 2019-02-16 17:27 | Hospitalist Progress Note ---
Date of Service February 16, 2019 Assessment & Plan (1) Hypoxia: Acute respiratory failure hypoxia with suspected aspiration. CXR neg x2, however it is uncertain when pt may have aspirated and imaging takes about 48hrs to show asp PNA after event. No need for bronchodilators as he does not have a significant history of chronic lung disease Hx of same, thought related to TF as pt is NPO due to aspiration risk Will also send UA given hx of similar sx with UTI (2) Aphasia: Patient is known aspiration risk he is on G-tube feedings because of this will be kept n.p.o. with all meds via the G-tube, patient typically is on Jevity 1.560 cc an hour from 2100 until noon is 270 cc of free water flushes per shift with 30 cc of free water flushes with each medicine (3) Hypertension: Patient blood pressures typically controlled with metoprolol. Afiib-- rate controlled with metoprolol and anticoagulated with warfarin INR therapeutic (4) History of mitral valve replacement with mechanical valve: As mentioned patient patient with history of mechanical mitral valve murmurs heard on exam there is not a brisk click however he is not having any overt signs of any type of heart failure Warfarin therapeutic (5) TBI (traumatic brain injury): With the patient's traumatic brain injury he is maintained on as needed Haldol for agitation usually before procedures Seroquel at bedtime pramipexole once a day and an antidepressant fluoxetine 20 Subjective Pt is aphasic and was not present when I was in the room. Pt is resting comfortably in bed. Does not appear in pain. Med student spoke with earlier who expressed concerns that pt's behavior was seen prior when he had a UTI, agitation and non-cooperative behavior. Nursing reports no concerns for him. No v/d or concerns of pain. VSS, afebrile. Unable to obtain full ROS due to pt's aphasic status. Review of Systems Review of Systems: Unable to obtain due to pt's aphasic status Physical Exam Constitutional: WD/WN, vitals as above Eyes: normal visual dooley by confrontation and + anicteric sclerae Neck: normal visual inspection and trachea midline Respiratory: normal respiratory effort; no respiratory distress upper airway congestion noted Cardiovascular: Rate/Rhythm: regular rate and regular rhythm Gastrointestinal (Abdomen): Inspection/Auscultation: abdomen not distended Percussion/Palpation: abdomen soft; abdomen nontender Musculoskeletal: Head/Neck/Chest: normocephalic and head atraumatic negative for edema, peripheral pulses intact Skin: no rashes, warm and dry Neurologic: awake and + confused Speech / Cognition: + receptive aphasia Does not speak or make any sounds Psychiatric: Seems to be alert to name but does not speak. Did smile at me when I smiled at him. Makes eye contact. Results & Data Vital Signs (Past 12 Hours) Vital Signs Temp Pulse Resp BP Pulse Ox 02/16/19 15:18 37.4 C 84 16 119/83 92 02/16/19 15:00 86 22 92 02/16/19 11:09 37.2 C 86 16 102/70 92 02/16/19 11:08 85 18 93 02/16/19 07:51 37.0 C 134 H 20 123/85 95 02/16/19 07:11 111 H 22 91
[2019-02-16] MEDS: QUETIAPINE FUMARATE 100 MG TABLET PO SCH (20:57)
[2019-02-17] LABS: Appearance Urine Clear (Clear); Bacteria Urine Automated Negative (Negative); Bilirubin Urine Negative (Negative); Blood Urine Negative (Negative); Color Urine Yellow; Epithelial Cell Urine Auto >30 /lpf (0-5); Glucose Urine UA Negative (Negative); Ketones Urine Trace (Negative); Leukocyte Esterase Urine Trace (Negative); Nitrite Urine Negative (Negative); Protein Urine Negative (Negative); RBC Urine Automated 0-4 /hpf (0-4); Urobilinogen Urine Negative (Negative); pH Urine 5.5 (4.5-7.5)
[2019-02-17] MEDS ORDERED: VANCOMYCIN HCL 1,250 MG in SODIUM CHLORIDE 0.9% 250 ML IV SCH
[2019-02-17] MEDS: PIPERACILLIN/TAZOBACTAM 3.375 GM in DEXTROSE 5% 100 ML IV SCH ×3 (00:01→16:25)
[2019-02-17] MEDS: ALBUT/IPRATROP 3MG/0.5MG NEB 3 ML VIAL NEB SCH ×6 (03:47→22:58)
[2019-02-17 07:12] LABS: Hematocrit (blood only) 38.2 % (42-52); Hemoglobin 12.7 g/dL (14.0-18.0); Mean Corpuscular Hgb Conc 33.2 g/dL (32-36); Mean Corpuscular Volume 97.2 fL (80-100); Mean Platelet Volume 12.1 fL (7.4-10.4); Platelet Count 256 K/uL (130-400); RDW Coefficient of Variation 14.6 % (11.5-14.5); RDW Standard Deviation 52.4 fL (36.4-46.3); Red Blood Count 3.93 M/uL (4.7-6.1); White Blood Count 12.36 K/uL (4.8-10.8)
[2019-02-17] MEDS ORDERED: VANCOMYCIN TROUGH ONE ×2 (07:30→15:30)
[2019-02-17 07:34] LABS: Prothrombin Time 34.6 Seconds (9.0-12.0)
[2019-02-17 07:50] LABS: BUN Creatinine Ratio 22.4 (10-20); Calcium 8.8 mg/dl (8.5-10.1); Creatinine Clr Calc Pharmacy 97.7 ml/min; Est GFR (African American) 112.4; Potassium 3.7 mmol/L (3.5-5.1)
[2019-02-17 08:02] LABS: INR 3.7 (0.9-1.1)
[2019-02-17] MEDS: GENTAMICIN SULFATE 0.3% OP SOLN 5 ML BTL OPR SCH ×2 (08:19→21:32)
[2019-02-17] MEDS: METOPROLOL TARTRATE 50 MG TAB PEG SCH (08:20)
[2019-02-17] MEDS: LANSOPRAZOLE 30 MG SOLTAB PEG SCH (08:20)
[2019-02-17] MEDS: PRAMIPEXOLE DIHYDROCHLO 0.25 MG TAB PO SCH (08:21)
[2019-02-17] MEDS: POTASSIUM CHLORIDE 20 MEQ/15 ML UDC PEG SCH (08:21)
[2019-02-17] MEDS: DOXAZosin MESYLATE TAB 2 MG TAB PEG SCH (08:21)
[2019-02-17] MEDS: METOCLOPRAMIDE HCL 5 MG/5 ML UDP PEG SCH (08:22)
[2019-02-17] MEDS: PSYLLIUM 58.6% POWDER PACKET PO SCH (08:22)
--- NOTE | 2019-02-17 13:26 | Hospitalist Progress Note ---
Date of Service February 17, 2019 Assessment & Plan (1) Hypoxia: Acute respiratory failure hypoxia with suspected aspiration. CXR neg x2, however it is uncertain when pt may have aspirated and imaging takes about 48hrs to show asp PNA after event. Hx of same, thought related to TF as pt is NPO due to aspiration risk Some upper airway congestion noted, likely pt has a weak cough due to mobility and vocal cord issues resulting from his subarachnoid hemorrhage Add mucomyst BID to help with thick sputum resulting from PNA UA noted for trace leuk est, neg nitrites and cx pending Current abx will cover WBC improved, afebrile Prelim blood cx neg d/c vanco 02/17, continue with zosyn and possibly transition to PO tomorrow if cx neg and pt continues to improve (2) Aphasia: Patient is known aspiration risk he is on G-tube feedings because of this will be kept n.p.o. with all meds via the G-tube, patient typically is on Jevity 1.560 cc an hour from 2100 until noon is 270 cc of free water flushes per shift with 30 cc of free water flushes with each medicine Resume TF (3) Hypertension: Patient blood pressures typically controlled with metoprolol. Afiib-- rate controlled with metoprolol and anticoagulated with warfarin Warfarin held on 02/17 due to INR 3.7, monitor (4) History of mitral valve replacement with mechanical valve: As mentioned patient patient with history of mechanical mitral valve murmurs heard on exam there is not a brisk click however he is not having any overt signs of any type of heart failure Warfarin held on 02/17 due to INR 3.7, monitor (5) TBI (traumatic brain injury): With the patient's traumatic brain injury he is maintained on as needed Haldol for agitation usually before procedures Seroquel at bedtime pramipexole once a day and an antidepressant fluoxetine 20 Subjective Pt is aphasic but is present today. She is very happy with his progress and feels pt is much better. 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 He is also not restless as he had been and she feels his color is better. Pt is resting comfortably in bed. Does not appear in pain. Nursing reports no concerns for him. No v/d or concerns of pain. VSS, afebrile. states that pt is positioned upright for TF at SNF, however it is a continuous TF throughout the day and over time he moves himself to a more prone position. She states he takes his O2 off at times as well. Unable to obtain full ROS due to pt's aphasic status. Review of Systems Review of Systems: Unable to obtain Physical Exam Constitutional: WD/WN, vitals as above Eyes: normal visual dooley by confrontation and + anicteric sclerae Neck: normal visual inspection and trachea midline Respiratory: normal respiratory effort; no respiratory distress upper airway congestion noted Cardiovascular: Rate/Rhythm: regular rate and regular rhythm Gastrointestinal (Abdomen): Inspection/Auscultation: abdomen not distended Percussion/Palpation: abdomen soft; abdomen nontender Musculoskeletal: Head/Neck/Chest: normocephalic and head atraumatic Skin: no rashes, warm and dry Neurologic: awake and + confused Speech / Cognition: + expressive aphasia Results & Data Vital Signs (Past 12 Hours) Vital Signs Temp Pulse Pulse Resp BP BP Pulse Ox 02/17/19 11:41 36.6 C 74 20 103/70 91 02/17/19 11:13 66 20 93 02/17/19 07:47 36.8 C 82 20 128/72 93 02/17/19 06:57 85 20 92 02/17/19 04:00 36.7 C 90 22 130/87 94 02/17/19 03:48 82 18 92 02/17/19 01:39 90
--- NOTE | 2019-02-17 16:16 | Medical Student Progress Note ---
Date of Service February 17, 2019 Assessment & Plan (1) Acute respiratory failure: Pt has hx of aspiration pneumonia and continues to have RF for aspiration pneumonia due to aphasia and PEG placement. Pt also has a hx of reflux as he is on Metoclopramide. 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 Keep NPO, on Peg tube feeding: On Jerity 1.560 cc an hr from 2100 till noon, 270 cc of free water flushes per shift, 30 cc flush w/ medicine continue home meds: metoclopramide, odanesterone, lasoprazole started on metamucil to keep bowels regular (3) Hypertension: on metoprolol for blood pressure control, also taking for rate control prn clonidine ordered for elevated bp readings (4) History of atrial fibrillation: anticoagulated on coumadin INR therapeutic at 2.4 rate controlled on metoprolol telemetry recorded sinus tachycardia overnight and throughout day (5) History of mitral valve replacement with mechanical valve: not showing signs of heart failure clinically although cxr suggestion pulmonary vessel prominence continue to monitor and look for signs of fluid overload on coumadin, therapeutic (6) TBI (traumatic brain injury): on halodol, quitiepene at home for agitation, continue in hospital lorazepam and morphine ordered prn for agitation as well pt taking fluoxetine for depression, continue & pramiprexole for restless leg, continue Supervising Attestation See my note for details Subjective Pt is a 68 yo M w/ pmh of subarachnoid hemmorhage who is aphasic and feed dependant on day 3 of his admission for acute hypoxemic respiratory failure. Today pt is doing well, still sleeping. Nursing had no concerns and said pt had been sleeping most of the time. was at the bedside and states pt usually sleeps most of the day when pt is sick/ hospitalized. feels his breathing has improved since being hospitalized and states the color has been gradually returning to his face. Pt remains NPO with peg tube. Physical Exam Vital Signs (Past 24 Hours): Last Vital Signs Temp 37.0 C 02/17/19 15:50 Pulse 83 02/17/19 15:50 Resp 21 02/17/19 15:50 BP 128/82 02/17/19 15:50 Pulse Ox 91 02/17/19 15:50 Constitutional: WD/WN, vitals as above sleeping in bed Eyes: PERRL, conjunctivae normal, anicteric sclerae Neck: trachea midline, no thyromegaly Respiratory: normal respiratory effort transmitted upper airway noise upon auscultation, coarse breath sounds Gastrointestinal (Abdomen): normal bowel sounds, soft, nontender, no hep atosplenomegaly Musculoskeletal: IV left hand, no peripheral edema or cyanosis, palpable pulses Neurologic: R. sided weakness, aphasic, altered mental status Results & Data Laboratory Results WBC 12.36 RBC 3.93 Hgb: 12.7 Hct 38.2 Na139 K 3.7 Cl107 HCO3 29 BUN 16 Cr.7 Glu 83 Diagnostic Findings U/A trace leuks, neg nitrates, neg wbc, neg rbc preliminary blood culture- no growth to date
[2019-02-17] MEDS: PEPTAMEN 1.5 CAL 1,000 ML BAG PEG SCH (18:01)
[2019-02-17] MEDS: ACETYLCYSTEINE 20% INHAL SOLN ***DISPENSED BY RESP. INH SCH (20:53)
[2019-02-17] MEDS ORDERED: ACETYLCYSTEINE 20% INHAL SOLN ***DISPENSED BY RESP. INH SCH (21:00)
[2019-02-17] MEDS: QUETIAPINE FUMARATE 100 MG TABLET PO SCH (21:32)
[2019-02-18] MEDS: PIPERACILLIN/TAZOBACTAM 3.375 GM in DEXTROSE 5% 100 ML IV SCH ×3 (00:58→16:49)
[2019-02-18] MEDS: ALBUT/IPRATROP 3MG/0.5MG NEB 3 ML VIAL NEB SCH ×6 (03:19→23:21)
[2019-02-18] MEDS: LORazepam 0.5 MG/1 ML VIAL IV PRN (06:14)
[2019-02-18] MEDS: ACETYLCYSTEINE 20% INHAL SOLN ***DISPENSED BY RESP. INH SCH (06:57)
[2019-02-18 07:59] LABS: Hematocrit (blood only) 37.2 % (42-52); Hemoglobin 12.6 g/dL (14.0-18.0); Mean Corpuscular Hgb Conc 33.9 g/dL (32-36); Mean Corpuscular Volume 97.4 fL (80-100); Mean Platelet Volume 11.7 fL (7.4-10.4); Platelet Count 274 K/uL (130-400); RDW Coefficient of Variation 14.8 % (11.5-14.5); Red Blood Count 3.82 M/uL (4.7-6.1); White Blood Count 10.09 K/uL (4.8-10.8)
[2019-02-18 08:18] LABS: Prothrombin Time 45.5 Seconds (9.0-12.0)
[2019-02-18] MEDS: METOPROLOL TARTRATE 50 MG TAB PEG SCH (08:33)
[2019-02-18 08:34] LABS: BUN Creatinine Ratio 20.1 (10-20); Creatinine Clr Calc Pharmacy 103.6 ml/min; Est GFR (African American) 115.1; Est GFR (Non-African American) 99.3; Potassium 3.5 mmol/L (3.5-5.1)
[2019-02-18] MEDS: PSYLLIUM 58.6% POWDER PACKET PO SCH (08:34)
[2019-02-18] MEDS: LANSOPRAZOLE 30 MG SOLTAB PEG SCH (08:34)
[2019-02-18] MEDS: DOXAZosin MESYLATE TAB 2 MG TAB PEG SCH (08:34)
[2019-02-18] MEDS: POTASSIUM CHLORIDE 20 MEQ/15 ML UDC PEG SCH (08:34)
[2019-02-18] MEDS: METOCLOPRAMIDE HCL 5 MG/5 ML UDP PEG SCH (08:34)
[2019-02-18] MEDS: PRAMIPEXOLE DIHYDROCHLO 0.25 MG TAB PO SCH (08:34)
[2019-02-18] MEDS: GENTAMICIN SULFATE 0.3% OP SOLN 5 ML BTL OPR SCH ×2 (08:35→20:47)
--- NOTE | 2019-02-18 09:56 | XRay Report ---
XR chest 1V portable CLINICAL HISTORY: No new, aspiration. COMPARISON STUDY: 02/15/2019 FINDINGS: There are postsurgical changes of midline sternotomy. The heart is the upper limits of norm al in size. There is interstitial thickening. An element of pulmonary vascular congestion must be con sidered. There is a suboptimal inspiration with bronchovascular crowding at the lung bases. IMPRESSION: Elevation of the interstitium, a finding which may indicate pulmonary vascular congestion . No evidence of lobar consolidation Electronically signed by: Kiran Cain M.D. 02/18/2019 9:54 AM
[2019-02-18] MEDS: methylPREDNISolone 40 MG in SYRINGE 0 ML IV SCH (20:46)
[2019-02-18] MEDS: PEPTAMEN 1.5 CAL 1,000 ML BAG PEG SCH (20:47)
[2019-02-18] MEDS: QUETIAPINE FUMARATE 100 MG TABLET PO SCH (20:47)
--- NOTE | 2019-02-18 21:30 | Hospitalist Progress Note ---
Date of Service February 18, 2019 Assessment & Plan (1) Acute respiratory failure: Initially thought 2nd to aspiration event leading to aspiration pneumonia. Serial chest x-rays, however, without evidence of pneumonia. Has received IV zosyn since admission - will d/c. change to augmentin - complete 7 days in total abx (including the previous IV abx). adding steroids today - see below. (2) Acute bronchitis: start solumedrol 40mg IV q6h. cont nebs. stop mucomyst nebs. change zosyn to augmentin. cxr today w/o pneumonia. (3) TBI (traumatic brain injury): history of such with SAH. uncertain of baseline mental status - inquire with family. (4) Subarachnoid hemorrhage: noted (5) Aphasia: by history he is noncommunicative (6) History of atrial fibrillation: noted has been in NSR while here takes coumadin chronically INR supratherapeutic HOLD coumadin repeat INR am (7) History of mitral valve replacement with mechanical valve: noted takes coumadin chronically with presumed INR goal of 2.5 to 3.5 repeat INR in am continue to hold coumadin (8) Status post gastrostomy: tube feedings at goal rate and tolerating w/o difficulty Subjective unable to obtain any history or ROS - patient sleeping heavily during the visit. I could not wake him up. Review of Systems Review of Systems: Unobtainable due to mental health condition and Unobtainable due to cognitive status Physical Exam Constitutional: + ill appearing; no acute distress tachypneic, sleeping ENMT: Mouth: + oral mucosal abnormality (MM dry) Respiratory: + respiratory distress, + labored breathing and + uses accessory muscles (minimally ) Auscultation: + diminished lung sounds, + rales (mild - bases ), + rhonchi and + wheezes Cardiovascular: Rate/Rhythm: regular rate and regular rhythm Heart Sounds: normal S1 and normal S2 (mechanical valve closure sound); no murmur Vessels: posterior tibial pulses present and dorsalis pedis pulses present; no JVD Gastrointestinal (Abdomen): normal bowel sounds, soft, nontender, no hepatosplenomegaly G-tube in place, clean Psychiatric: Orientation: + not alert and + not oriented x 3 Results & Data Vital Signs (Past 12 Hours) Vital Signs Temp Pulse Resp BP Pulse Ox 02/18/19 19:37 36.9 C 80 20 124/85 91 02/18/19 19:23 81 20 98 02/18/19 15:31 36.7 C 80 18 111/71 98 02/18/19 15:10 77 16 98 02/18/19 11:15 36.7 C 62 20 113/79 100 02/18/19 11:03 69 18 99 Laboratory Results Laboratory Results - last 24 hr 02/18/19 02/18/19 02/18/19 07:47 07:47 07:47 WBC 10.09 RBC 3.82 L Hgb 12.6 L Hct 37.2 L MCV 97.4 MCH 33.0 MCHC 33.9 RDW Std Deviation 53.0 H RDW Coeff of Kristal 14.8 H Plt Count 274 MPV 11.7 H PT 45.5 H INR 5.0 H Sodium 142 Potassium 3.5 Chloride 109 H Carbon Dioxide 28 Anion Gap 5.0 BUN 13 Creatinine 0.66 Est Cr Clr Drug Dosing 103.6 Est GFR ( Amer) 115.1 Est GFR (Non-Af Amer) 99.3 BUN/Creatinine Ratio 20.1 H Glucose 110 H POC Glucose Calcium 9.0 02/18/19 18:10 WBC RBC Hgb Hct MCV MCH MCHC RDW Std Deviation RDW Coeff of Kristal Plt Count MPV PT INR Sodium Potassium Chloride Carbon Dioxide Anion Gap BUN Creatinine Est Cr Clr Drug Dosing Est GFR ( Amer) Est GFR (Non-Af Amer) BUN/Creatinine Ratio Glucose POC Glucose 118 H Calcium Diagnostic Findings cxr - no pneumonic infiltrates (1) Acute respiratory failure Respiratory failure complication: hypoxia Qualified Code(s): J96.01 - Acute respiratory failure with hypoxia (2) Acute bronchitis Bronchitis organism: unspecified organism Qualified Code(s): J20.9 - Acute b ronchitis, unspecified (3) TBI (traumatic brain injury) Encounter type: sequela Loss of consciousness presence/duration: with LOC of unspecified duration Qualified Code(s): S06.9X9S - Unspecified intracranial injury with loss of consciousness of unspecified duration, sequela
[2019-02-19] MEDS: methylPREDNISolone 40 MG in SYRINGE 0 ML IV SCH ×4 (00:20→18:54)
[2019-02-19] MEDS: ALBUT/IPRATROP 3MG/0.5MG NEB 3 ML VIAL NEB SCH ×6 (03:35→23:26)
[2019-02-19 06:18] LABS: INR 2.1 (0.9-1.1); Prothrombin Time 20.7 Seconds (9.0-12.0)
[2019-02-19 06:22] LABS: BUN Creatinine Ratio 19.1 (10-20); Calcium 9.3 mg/dl (8.5-10.1); Creatinine Clr Calc Pharmacy 102.1 ml/min; Est GFR (African American) 114.4; Est GFR (Non-African American) 98.7; Potassium 3.8 mmol/L (3.5-5.1)
[2019-02-19] MEDS: PSYLLIUM 58.6% POWDER PACKET PO SCH (08:03)
[2019-02-19] MEDS: POTASSIUM CHLORIDE 20 MEQ/15 ML UDC PEG SCH (08:03)
[2019-02-19] MEDS: METOCLOPRAMIDE HCL 5 MG/5 ML UDP PEG SCH (08:04)
[2019-02-19] MEDS: METOPROLOL TARTRATE 50 MG TAB PEG SCH (08:04)
[2019-02-19] MEDS: GENTAMICIN SULFATE 0.3% OP SOLN 5 ML BTL OPR SCH ×2 (08:05→20:46)
[2019-02-19] MEDS: PRAMIPEXOLE DIHYDROCHLO 0.25 MG TAB PO SCH (08:06)
[2019-02-19] MEDS: LANSOPRAZOLE 30 MG SOLTAB PEG SCH (08:06)
[2019-02-19] MEDS: DOXAZosin MESYLATE TAB 2 MG TAB PEG SCH (08:06)
[2019-02-19] MEDS: AMOXICILLIN/CLAVULANATE SUSP 400MG/5ML 50ML BOTTLE PO SCH ×2 (08:19→20:54)
[2019-02-19] MEDS ORDERED: AMOXICILLIN/CLAVULANATE 875 MG TAB PO SCH (09:00)
[2019-02-19] MEDS: WARFARIN SOD 4 MG TAB PO SCH (16:27)
[2019-02-19] MEDS: PEPTAMEN 1.5 CAL 1,000 ML BAG PEG SCH (19:15)
[2019-02-19] MEDS: QUETIAPINE FUMARATE 100 MG TABLET PO SCH (20:47)
--- NOTE | 2019-02-19 22:06 | Hospitalist Progress Note ---
Date of Service February 19, 2019 Assessment & Plan (1) Acute on chronic respiratory failure with hypoxemia: acute component 2nd to acute bronchitis in setting of possible aspiration event at SNF. no evidence of pneumonia process on multiple chest x-rays while here. wean IV steroids today to q12h dosing. cont nebs. cont augmentin. overall doing nicely as confirmed by . Present on Admission?: Yes (2) Acute bronchitis: wean solumedrol to 40mg IV q12h. cont nebs. cont augmentin. day #5/7 of abx. I believe he probably has underlying COPD. At discharge would recommend pulmicort nebs BID as maintenance Rx for him. (3) TBI (traumatic brain injury): history of such with SAH. mental status at baseline per . (4) Subarachnoid hemorrhage: history of noted (5) Aphasia: by history he is noncommunicative at baseline (6) History of atrial fibrillation: noted has been in NSR while here takes coumadin chronically INR 2.1 today resume coumadin INR am (7) History of mitral valve replacement with mechanical valve: noted takes coumadin chronically with presumed INR goal of 2.5 to 3.5 repeat INR in am continue coumadin (8) Status post gastrostomy: tube feedings at goal rate and tolerating w/o difficulty updated at bedside today anticipate d/c back to SNF next 1-2 days Subjective tele stable overnight pt's was present at bedside she stated his mental status is at baseline and markedly improved from time of admission she also agrees his breathing is much better reports her prior to his TBI was a very heavy smoker he gets 3-4 episodes of respiratory illness each year he is on continuous oxygen at the SNF Review of Systems Review of Systems: Unobtainable due to cognitive status Physical Exam Constitutional: + ill appearing; no acute distress ENMT: Mouth: + oral mucosal abnormality (MM dry) Respiratory: no respiratory distress Auscultation: + diminished lung sounds, + rhonchi (improved today) and + wheezes (improved today); no rales overall lung exam markedly improved today Cardiovascular: Rate/Rhythm: regular rate and regular rhythm Heart Sounds: normal S1 and normal S2 (mechanical valve closure sound); no murmur Vessels: posterior tibial pulses present and dorsalis pedis pulses present; no JVD Gastrointestinal (Abdomen): normal bowel sounds, soft, nontender, no hepatosplenomegaly PEG clean Psychiatric: Orientation: + not alert and + not oriented x 3 Results & Data Vital Signs (Past 12 Hours) Vital Signs Temp Pulse Pulse Pulse Resp BP Pulse Ox 02/19/19 19:58 98 H 20 90 02/19/19 19:38 36.5 C 96 H 20 162/90 H 90 02/19/19 16:03 92 H 22 93 02/19/19 16:00 90 02/19/19 14:45 36.6 C 66 19 141/93 H 98 02/19/19 11:31 36.4 C L 84 20 127/87 98 02/19/19 11:20 83 18 94 Laboratory Results Laboratory Results - last 24 hr 02/18/19 02/19/19 02/19/19 23:55 05:33 05:33 PT 20.7 H INR 2.1 H Sodium 139 Potassium 3.8 Chloride 108 H Carbon Dioxide 29 Anion Gap 2.0 L BUN 13 Creatinine 0.67 Est Cr Clr Drug Dosing 102.1 Est GFR ( Amer) 114.4 Est GFR (Non-Af Amer) 98.7 BUN/Creatinine Ratio 19.1 Glucose 201 H POC Glucose 104 H Calcium 9.3 02/19/19 02/19/19 11:52 17:35 PT INR Sodium Potassium Chloride Carbon Dioxide Anion Gap BUN Creatinine Est Cr Clr Drug Dosing Est GFR ( Amer) Est GFR (Non-Af Amer) BUN/Creatinine Ratio Glucose POC Glucose 115 H 152 H Calcium (1) TBI (traumatic brain injury) Encounter type: sequela Loss of consciousness presence/duration: with LOC of unspecified duration Qualified Code(s): S06.9X9S - Unspecified intracranial injury with loss of consciousness of unspecified duration, sequela (2) Acute bronchitis Bronchitis organism: unspecified organism Qualified Code(s): J20.9 - Acute bronchitis, unspecified
[2019-02-20] MEDS: ALBUT/IPRATROP 3MG/0.5MG NEB 3 ML VIAL NEB SCH ×6 (03:20→23:03)
[2019-02-20] MEDS: methylPREDNISolone 40 MG in SYRINGE 0 ML IV SCH ×2 (06:43→18:43)
[2019-02-20 06:51] LABS: INR 1.5 (0.9-1.1); Prothrombin Time 15.4 Seconds (9.0-12.0)
[2019-02-20] MEDS: LORazepam 0.5 MG/1 ML VIAL IV PRN (08:18)
[2019-02-20] MEDS: DOXAZosin MESYLATE TAB 2 MG TAB PEG SCH (08:22)
[2019-02-20] MEDS: GENTAMICIN SULFATE 0.3% OP SOLN 5 ML BTL OPR SCH ×2 (08:22→21:56)
[2019-02-20] MEDS: LANSOPRAZOLE 30 MG SOLTAB PEG SCH (08:22)
[2019-02-20] MEDS: METOPROLOL TARTRATE 50 MG TAB PEG SCH (08:22)
[2019-02-20] MEDS: PRAMIPEXOLE DIHYDROCHLO 0.25 MG TAB PO SCH (08:22)
[2019-02-20] MEDS: POTASSIUM CHLORIDE 20 MEQ/15 ML UDC PEG SCH (08:23)
[2019-02-20] MEDS: PSYLLIUM 58.6% POWDER PACKET PO SCH (08:23)
[2019-02-20] MEDS: AMOXICILLIN/CLAVULANATE SUSP 400MG/5ML 50ML BOTTLE PO SCH ×2 (08:29→21:56)
[2019-02-20] MEDS: METOCLOPRAMIDE HCL 5 MG/5 ML UDP PEG SCH (08:29)
[2019-02-20] MEDS: WARFARIN SOD 4 MG TAB PO SCH (15:33)
[2019-02-20] MEDS ORDERED: WARFARIN SOD 3 MG TAB PO ONE (16:00)
--- NOTE | 2019-02-20 19:02 | Hospitalist Progress Note ---
Date of Service February 20, 2019 Assessment & Plan (1) Acute on chronic respiratory failure with hypoxemia: acute component 2nd to acute bronchitis in setting of possible aspiration event at SNF. no evidence of pneumonia process on multiple chest x-rays while here. pulmonary exam continues to improve. leave steroids as is today; anticipate weaning to prednisone via PEG tomorrow. cont nebs. cont augmentin. overall has done nicely while here. (2) Acute bronchitis: leave solumedrol as is today. cont nebs. cont augmentin. day #6/7 of abx. I believe he probably has underlying COPD. At discharge would recommend pulmicort nebs BID as maintenance Rx for him. informed of this. (3) TBI (traumatic brain injury): history of such with SAH. mental status at baseline per . (4) Subarachnoid hemorrhage: history of noted (5) Aphasia: by history he is noncommunicative at baseline (6) History of atrial fibrillation: noted has been in NSR while here on monitoring takes coumadin chronically INR 1.5 today simply monitor INR; repeat INR am would not bridge at this time (7) History of mitral valve replacement with mechanical valve: noted takes coumadin chronically with presumed INR goal of 2.5 to 3.5 repeat INR in am INR today 1.5 continue coumadin (8) Status post gastrostomy: tube feedings at goal rate and tolerating w/o difficulty anticipate d/c back to SNF - likely tomorrow Subjective no issues overnight resting comfortably during the visit patient awake but nonverbal is back down to his usual home o2 amount tele stable tolerating PEG tube feedings Review of Systems Review of Systems: Unobtainable due to cognitive status Physical Exam Constitutional: no acute distress Respiratory: no respiratory distress Auscultation: + diminished lung sounds and + wheezes (minimal ); no rales Cardiovascular: Rate/Rhythm: regular rate and regular rhythm Heart Sounds: normal S1 and normal S2 (mechanical valve closure sound); no murmur Vessels: posterior tibial pulses present and dorsalis pedis pulses present; no JVD Gastrointestinal (Abdomen): normal bowel sounds, soft, nontender, no hepatosplenomegaly Psychiatric: Orientation: + not oriented x 3 Results & Data Vital Signs (Past 12 Hours) Vital Signs Temp Pulse Pulse Resp BP BP Pulse Ox 02/20/19 15:51 36.3 C L 83 20 137/77 91 02/20/19 14:29 81 20 91 02/20/19 11:28 35.9 C L 78 16 127/83 98 02/20/19 11:04 79 16 94 02/20/19 07:46 36.4 C L 90 16 112/75 97 02/20/19 07:07 82 20 94 (1) TBI (traumatic brain injury) Encounter type: sequela Loss of consciousness presence/duration: with LOC of unspecified duration Qualified Code(s): S06.9X9S - Unspecified intracranial injury with loss of consciousness of unspecified duration, sequela (2) Acute bronchitis Bronchitis organism: unspecified organism Qualified Code(s): J20.9 - Acute bronchitis, unspecified
[2019-02-20] MEDS: PEPTAMEN 1.5 CAL 1,000 ML BAG PEG SCH (20:16)
[2019-02-20] MEDS: QUETIAPINE FUMARATE 100 MG TABLET PO SCH (21:56)
[2019-02-21] MEDS: ALBUT/IPRATROP 3MG/0.5MG NEB 3 ML VIAL NEB SCH ×3 (03:19→11:07)
[2019-02-21] MEDS: methylPREDNISolone 40 MG in SYRINGE 0 ML IV SCH (06:30)
[2019-02-21 06:45] LABS: INR 1.8 (0.9-1.1); Prothrombin Time 17.6 Seconds (9.0-12.0)
[2019-02-21] MEDS: POTASSIUM CHLORIDE 20 MEQ/15 ML UDC PEG SCH (09:22)
[2019-02-21] MEDS: PSYLLIUM 58.6% POWDER PACKET PO SCH (09:23)
[2019-02-21] MEDS: AMOXICILLIN/CLAVULANATE SUSP 400MG/5ML 50ML BOTTLE PO SCH (09:23)
[2019-02-21] MEDS: PRAMIPEXOLE DIHYDROCHLO 0.25 MG TAB PO SCH (09:23)
[2019-02-21] MEDS: DOXAZosin MESYLATE TAB 2 MG TAB PEG SCH (09:23)
[2019-02-21] MEDS: LANSOPRAZOLE 30 MG SOLTAB PEG SCH (09:24)
[2019-02-21] MEDS: GENTAMICIN SULFATE 0.3% OP SOLN 5 ML BTL OPR SCH (09:24)
[2019-02-21] MEDS: METOPROLOL TARTRATE 50 MG TAB PEG SCH (09:24)
[2019-02-21] MEDS: METOCLOPRAMIDE HCL 5 MG/5 ML UDP PEG SCH (09:24)
[2019-02-21] MEDS: LORazepam 0.5 MG/1 ML VIAL IV PRN (12:05)
--- NOTE | 2019-02-26 21:58 | Discharge Summary ---
Date of Service date of admission - February 15, 2019 date of discharge - February 21, 2019 Admission HPI Per Admitting Provider 68-year-old male resident of [facility] who presented to the Emergency Room with an episode of respiratory issues that started last night. EMS reports that the patient was found lying on his side on the floor this morning and is believed to have aspirated. The patient is non-responsive at baseline. EMS notes that [facility] stated that the patients O2 saturation level was at 60% this morning. EMS also reports that the patient received a duoneb at [facility]. The patient has a history of aphasia (he is mostly noncommunicative), dysphagia, and subarachnoid hemorrhage. He is a strict NPO and receives all meds/nutrition via PEG tube. Principal Diagnosis acute/chronic hypoxic respiratory failure Discharge Exam Constitutional no acute distress Respiratory no respiratory distress Auscultation: + diminished lung sounds; no rales and no wheezes Cardiovascular Rate/Rhythm: regular rate and regular rhythm Heart Sounds: normal S1 and normal S2 (mechanical valve closure sound); no murmur Vessels: posterior tibial pulses present and dorsalis pedis pulses present; no JVD Gastrointestinal (Abdomen) normal bowel sounds, soft, nontender, no hepatosplenomegaly PEG clean Psychiatric Orientation: + not oriented x 3 Discharge Data Allergies Allergy/AdvReac Type Severity Reaction Status Date / Time No Known Allergies Allergy Mild Verified 01/09/16 08:01 Consultations Hospital Course (1) Acute on chronic respiratory failure with hypoxemia: acute component was 2nd to acute bronchitis in setting of possible aspiration event at SNF. no evidence of pneumonia process on multiple chest x-rays while here. he received antibiotics and steroids along with nebs. O2 was weaned to his usual amount (4 liters via NC continuously). reported that prior to his traumatic brain injury he had a long history of tobacco usage. she also reported that he gets respiratory illnesses about 3-4 times each year. thus, in addition to completing his antibiotic and steroid course after discharge, I recommended twice daily pulmicort nebs for maintenance therapy. (2) Acute bronchitis: Treated with nebs, O2, steroids, antibiotics. Improved with such measures. Blood cultures remained negative while hospitalized. I believe he probably has underlying COPD. Thus, at discharge, I recommended pulmicort nebs BID as maintenance treatment for him. (3) TBI (traumatic brain injury): history of such with SAH. mental status was at baseline per at time of discharge. (4) Subarachnoid hemorrhage: history of (5) Aphasia: by history he is noncommunicative at baseline (6) History of atrial fibrillation: Was in NSR on monitoring during the stay. Takes coumadin chronically INR on day of discharge was 1.8. He will continue his usual coumadin regimen post-discharge. (7) History of mitral valve replacement with mechanical valve: Takes coumadin chronically with presumed INR goal of 2.5 to 3.5. INR day of discharge was 1.8. Continue coumadin per prior regimen. INR daily for 3 days post-discharge recommended. (8) Status post gastrostomy: Tube feedings were at goal rate during the stay and tolerated. Total Time Total Time Spent Total Time Spent (In Minutes): 35 Total Time Includes: Examination of the Patient, Discharge Planning and Medication Reconciliation Discharge Plan Discharge Items Patient Disposition: Transfer Long-Term Fac Reason For Visit: ACUTE RESPIRATORY FAILURE WITH HYPOXIA Discharge Diagnosis: acute on chronic respiratory failure - acute component due to suspected aspiration event and bronchitis - both improved. Stable on usual oxygen amount. Discharge Goals: Diagnostic testing and Therapeutic intervention Activity: Resume your previous activity Non-emergency contact: Primary Care Provider Call non-emergency contact if: your symptoms worsen and your temperature is above 100.5 Follow-up/Referrals: Romie Beavers [Primary Care Provider] - Diet: Enteral nutrition Addtl Provider Instructions: From Jake Miller - Hospitalist - 1. Continue Jevity 1.5 tube feedings as previous via PEG. Schedule - * 60cc/hr continuously from 2100 to 12noon the next day * 270cc free water flushes once per shift (three times daily) * 30cc free water flushes with medication administrations 2. START pulmicort respules -- 1 ampule twice a day every day. 3. continue oxygen 4 liters continuously as previous. 4. Prednisone taper via PEG tube - start 02/22/19. 5. ONE MORE DOSE OF amoxicillin-clavulanate via PEG TONIGHT then stop. 6. duonebs FOUR TIMES A DAY EVERY DAY if possible. 7. INR on 02/22/2019, 02/23/2019, and 02/24/19. INR goal is 2.5 to 3.5. Results to medical research associate. INR on 02/21/19 at [facility] -- 1.8. 8. Follow-up medical research associate at [facility] in 2-3 days. 9. Aspiration precautions at all times due to high risk of aspiration. Return to [facility] if -- * fevers over 100.5 degrees * worsening shortness of breath * worsening oxygen requirement (anything beyond 4 liters) * persistent vomiting * severe diarrhea * any other concerns Prescriptions: New ipratropium-albuterol 0.5 mg-3 mg(2.5 mg base)/3 mL Solution For Nebulization 3 ml NEB QID Qty: 120 RF: 1 prednisone 10 mg tablet 10 mg feeding tube DIRECTED Qty: 15 RF: 0 budesonide [Pulmicort] 0.5 mg/2 mL suspension for nebulization 1 ml INH BID Qty: 60 RF: 5 amoxicillin-pot clavulanate [Augmentin] 250-62.5 mg/5 mL suspension for reconstitution 15 ml feeding tube ONCE Qty: 15 RF: 0 Oxygen Home Liters Per Minute .ROUTE .MEDSUPPLY Qty: 1 RF: 0 Changed quetiapine 100 mg tablet 100 mg feeding tube DAILY Qty: 0 RF: 0 warfarin 4 mg tablet 4 mg feeding tube DAILY Qty: 0 RF: 0 potassium chloride 20 mEq/15 mL liquid 15 ml feeding tube DAILY Qty: 0 RF: 0 metoclopramide HCl 5 mg tablet 5 mg feeding tube DAILY Qty: 0 RF: 0 metoprolol tartrate 50 mg tablet 50 mg feeding tube DAILY Qty: 0 RF: 0 pramipexole 0.25 mg tablet 1 tab feeding tube DAILY Qty: 0 RF: 0 doxazosin 2 mg tablet 2 mg feeding tube DAILY Qty: 0 RF: 0 esomeprazole magnesium 20 mg capsule,delayed release(DR/EC) 20 mg feeding tube DAILY Qty: 0 RF: 0 haloperidol lactate 2 mg/mL concentrate 1 ml feeding tube Q4H PRN (Reason: Agitation) Qty: 0 RF: 0 Stand-Alone Forms: [facility] Discharge Orders: Discharge Order (Routine); Ordered 02/21/19 Ordered By: Jake Miller Skilled Items Patient informed of condition?: No DNR: No Discharge Level of Care: Skilled Communicable Disease: No Discharge Prognosis: Other Admission Data Admit Date/Time: 02/15/19 10:50 Attending Provider: Jake Miller Admit Provider: Jesús Sidhu Primary Care Provider: Romie Beavers Other Providers: Kelly Rhodes ; Jesús Sidhu Service: Telemetry Medical Other Interventions: Discharge Summary Assessment (RN) Last Done: 02/21/19 13:21 Pending Studies at Discharge: No DC Date/Time DO NOT enter until pt leaves facility: 02/21/19 14:25
== END 2019-02-21 14:25 | DRG 189 ==
LOC: ED 08:18 → 2N 10:50 → SUATTDRO 10:50 → 2N 11:26
DX: R47.01 Aphasia; I48.91 Unspecified atrial fibrillation; J96.21 Acute and chronic respiratory failure with hypoxia; Z93.1 Gastrostomy status; J20.9 Acute bronchitis, unspecified; Z95.2 Presence of prosthetic heart valve; I10 Essential (primary) hypertension; Z79.01 Long term (current) use of anticoagulants; J69.0 Pneumonitis due to inhalation of food and vomit

== ENCOUNTER 2019-11-16 14:36 | Observation (INO) ==
[2019-11-16] MEDS ORDERED: ONDANSETRON INJ 2 MG/ML 2 ML VIAL IV PRN (14:50)
[2019-11-16 16:11] LABS: Basophils # (auto) 0.02 K/uL (0-0.2); Basophils % (auto) 0.2 %; Eosinophils # (auto) 0.29 K/uL (0-0.5); Eosinophils % (auto) 3.5 %; Hematocrit (blood only) 41.6 % (42-52); Hemoglobin 13.8 g/dL (14.0-18.0); Immature Granulocytes # (auto) 0.01 K/uL (0.00-0.02); Immature Granulocytes % (auto) 0.1 %; Lymphocytes # (auto) 1.21 K/uL (1.2-3.4); Lymphocytes % (auto) 14.5 %; Mean Corpuscular Hemoglobin 33.1 pg (25-34); Mean Corpuscular Hgb Conc 33.2 g/dL (32-36); Mean Corpuscular Volume 99.8 fL (80-100); Monocytes # (auto) 1.06 K/uL (0.11-0.59); Monocytes % (auto) 12.7 %; Neutrophils # (auto) 5.75 K/uL (1.4-6.5); Platelet Count 296 K/uL (130-400); RDW Standard Deviation 54.5 fL (36.4-46.3); Red Blood Count 4.17 M/uL (4.7-6.1); White Blood Count 8.34 K/uL (4.8-10.8)
[2019-11-16 16:27] LABS: BUN Creatinine Ratio 21.6 (10-20); Blood Urea Nitrogen 16 mg/dl (7-18); Calcium 9.2 mg/dl (8.5-10.1); Carbon Dioxide 30 mmol/L (21-32); Chloride 105 mmol/L (98-107); Est GFR (African American) 111.1; Est GFR (Non-African American) 95.9; Glucose 103 mg/dl (70-99); Potassium 4.4 mmol/L (3.5-5.1); Sodium 138 mmol/L (136-145)
--- NOTE | 2019-11-16 16:29 | Anesthesiology Consultation ---
Date of Service November 16, 2019 Assessment & Plan (1) Encounter for pre-operative examination: Chart Review Chart Review: Pending: Refer to Additional Notes / Consult section (labs pending) History Surgery Operation Date: 11/17/19 07:30 Proposed Procedures p Esophagogastroduodenoscopy - Bassam Cleaning DO s Feed Tube Insertion in OR - Bassam Cleaning DO Allergies Allergy/AdvReac Type Severity Reaction Status Date / Time No Known Allergies Allergy Mild Verified 11/16/19 13:57 Medications Home Medications Medication Instructions Recorded Confirmed Last Taken Oxygen Home #1 ea 02/21/19 11/16/19 Unknown budesonide [Pulmicort] 1 ml INH BID #60 ml 02/21/19 11/16/19 Unknown doxazosin 2 mg FEEDING TUBE DAILY #0 tab 02/21/19 11/16/19 Unknown esomeprazole magnesium 20 mg FEEDING TUBE DAILY #0 cap 02/21/19 11/16/19 Unknown haloperidol lactate 1 ml FEEDING TUBE Q4H PRN #0 ml 02/21/19 11/16/19 Unknown ipratropium-albuterol 3 ml NEB QID #120 amp 02/21/19 11/16/19 Unknown metoclopramide HCl 5 mg FEEDING TUBE DAILY #0 tab 02/21/19 11/16/19 Unknown metoprolol tartrate 50 mg FEEDING TUBE DAILY #0 tab 02/21/19 11/16/19 Unknown potassium chloride 15 ml FEEDING TUBE DAILY #0 ml 02/21/19 11/16/19 Unknown pramipexole 1 tab FEEDING TUBE DAILY #0 tab 02/21/19 11/16/19 Unknown quetiapine 100 mg FEEDING TUBE DAILY #0 tab 02/21/19 11/16/19 Unknown warfarin 4 mg FEEDING TUBE DAILY #0 tab 02/21/19 11/16/19 Unknown fluoxetine 20 mg/5 mL (4 mg/mL) 20 mg PO DAILY 11/16/19 11/16/19 Unknown oral solution Past Family History Family History Other Family history non-contributory Past Surgical History Surgical History Status post craniotomy (Chronic) Status post gastrostomy (Chronic) "PEG" Status post mitral valve replacement (Chronic) Status post splenectomy (Chronic) Status post tracheostomy (Chronic) Social History Smoking Status: Former smoker Hx Alcohol Use: No Hx Substance Use: No Physical Exam Vital Signs Last Vital Signs Temp 36.8 C 11/16/19 15:25 Pulse 66 11/16/19 15:25 Resp 16 11/16/19 15:25 BP 135/88 11/16/19 15:25 Pulse Ox 94 11/16/19 15:25 Testing Laboratory Results 11/16/19 15:57 Electrocardiogram Date: 02/15/19 Findings: + NSR @ (98 occasional PVC's)
[2019-11-16] MEDS: D5W AND 1/2NSS 1,000 ML IV SCH (17:46)
[2019-11-17] MEDS: D5W AND 1/2NSS 1,000 ML IV SCH ×3 (01:33→17:02)
[2019-11-17] MEDS: IPRATROPIUM BROMIDE NEB SOLN 0.02% 2.5 ML VIAL NEB SCH ×3 (06:25→15:12)
[2019-11-17] MEDS ORDERED: PHENYLEPHRINE 100MCG/ML 5ML SYR IV PRN (07:13)
[2019-11-17] MEDS ORDERED: fentaNYL citrate 100 MCG/2 ML VIAL IV PRN (07:13)
[2019-11-17] MEDS ORDERED: ATROPINE SULFATE 0.1 MG/ML 10ML SYR IV PRN (07:13)
[2019-11-17] MEDS ORDERED: LABETALOL HCL IV 5 MG/ML 20ML IV PRN (07:13)
[2019-11-17] MEDS ORDERED: ePHEDrine sulfate 50 MG/ML AMP IV PRN (07:13)
[2019-11-17] MEDS ORDERED: ONDANSETRON INJ 2 MG/ML 2 ML VIAL IV PRN (07:13)
[2019-11-17] MEDS ORDERED: ePHEDrine sulfate 50 MG/ML AMP ONE (07:15)
[2019-11-17] MEDS ORDERED: PHENYLEPHRINE HCL 10 MG/ML VIAL ONE (07:15)
[2019-11-17] MEDS ORDERED: PROPOFOL IV EMULSION 10 MG/ML 20 ML VIAL IV ONE (07:15)
[2019-11-17] MEDS ORDERED: GLYCOPYRROLATE 0.2 MG/ML VIAL ONE (07:15)
[2019-11-17] MEDS ORDERED: LIDOCAINE HCL 2% 2 ML VIAL/AMP(20MG/ML) INFIL ONE (07:15)
[2019-11-17] MEDS ORDERED: NEOSTIGMINE METHYLSULFATE 5 MG/5 ML SYR ONE (07:15)
[2019-11-17] MEDS ORDERED: SUCCINYLCHOLINE CHLORIDE 20 MG/ML 10 ML VIAL ONE (07:15)
[2019-11-17] MEDS ORDERED: ONDANSETRON INJ 2 MG/ML 2 ML VIAL ONE ×2 (07:15→08:17)
[2019-11-17] MEDS ORDERED: fentaNYL citrate 100 MCG/2 ML VIAL ONE (07:15)
[2019-11-17] MEDS ORDERED: DEXAMETHASONE SOD INJ 4 MG/ML VIAL ONE (07:15)
[2019-11-17] MEDS ORDERED: KETAMINE HCL INJ 50 MG/ML 10 ML VIAL ONE (07:18)
--- NOTE | 2019-11-17 07:19 | History & Physical Bridge Note ---
Date of Service November 17, 2019 History & Physical Bridge Note I have examined the patient, reviewed the History & Physical and in the interval since the performance of the History & Physical I have noted the following changes of clinical significance: no changes noted
--- NOTE | 2019-11-17 08:27 | Operative Report ---
PG Post Operative Report Pre & Post Diagnosis Operation Date: 11/17/19 07:30 Pre-Op Diagnosis: GASTROSTOMY I identified the patient and participated in the time-out.: Yes Procedure Operation Date: 11/17/19 07:30 Actual Procedures p Esophagogastroduodenoscopy - Bassam Cleaning DO s Feed Tube Exchange in OR - Bassam Cleaning DO Surgeon Bassam Cleaning DO Card Cleaner may Power Estimated Blood Loss 5 Findings Consistent with Post-Op Diagnosis Specimens distal portion of feeding tube Description of Procedure After informed consent was obtained the patient was brought to the operating room and placed in supine position. IV sedation was administered by anesthesia and titrated to effect. After adequate sedation a bite block was placed. Gas scope was inserted in the oropharynx and the proximal esophagus without difficulty. Keeping the lumen in view at all times scope was passed down through the esophagus into the stomach. It was passed through the pylorus and into the first and second portions of the duodenum. I then withdrew the scope and retroflexed upon itself. By palpating the outside of the abdominal wall I was able to identify the previous feeding tube tract. The distal portion of the feeding tube which had broken off was in the distal stomach. We initially tried grasping it with a rat-tooth grasper bringing it out of the esophagus however it was too friable and a small portion of the rubberized feeding tube broke off. We exchanged the rat-tooth for a net basket. I was able to get the mushroom end of the feeding tube into the netting. We then closed and I was able to withdraw the scope as well as the distal end of the feeding tube. I then reintroduced the gastroscope into the esophagus and down into the stomach. We attempted to simply advance a new 20 American balloon type feeding tube through the existing tract however it was too flexible and would not go through the tract. Therefore we opened the traditional feeding tube kit. We prepped the area with sterile chlorhexidine. We then advanced a finder needle through the previous tract into the lumen of the stomach. We then advanced the blue guidewire through the sheath after removing the needle. A snare was used to grab the guidewire which was pulled out through the oropharynx. A 20 American feeding tube was attached and then the blue guidewire used to pull the feeding tube down through the stomach and out through the anterior abdominal wall. I then reintroduced the gastroscope to verify positioning. The feeding tube sat nice and without pressure or ischemia to the gastric mucosa. Next I placed the bumper to the outside the feeding tube followed by a clamping device followed by the Y connector. It flushed easily without pressure. The patient was subsequently awakened and transferred recovery in stable condition. My physician teacher's assistant was present the entire case and assisted with the external portion of the feeding tube placement. I attest to the content of the Intraoperative Record and any orders documented therein. Any exceptions are noted below.
--- NOTE | 2019-11-17 08:42 | Anesthesiology Progress Note ---
Date of Service November 17, 2019 Anesthesia Post Procedure Vital Signs Vital Signs: Temp Pulse Resp BP Pulse Ox 11/17/19 07:15 37.0 C 64 20 149/95 H 92 11/17/19 06:26 63 20 93 11/17/19 06:05 36.7 C 63 22 149/92 H 96 11/17/19 01:50 93 11/16/19 23:10 36.7 C 66 18 154/67 H 92 11/16/19 16:46 36.8 C 66 16 135/88 93 11/16/19 15:25 36.8 C 66 16 135/88 94 Transfer of Care Handoff Completed per policy Notes Mental Status: alert / awake / arousable Patient Amnestic to Procedure: Yes Nausea / Vomiting: adequately controlled Pain: adequately controlled Airway Patency, RR, SpO2: stable & adequate BP & HR: stable & adequate Hydration State: stable & adequate Anesthetic Complications: no major complications apparent and Pt Satisfied with anesthetic care Notes: The patient is awake and stable at baseline.
--- NOTE | 2019-11-17 09:50 | Discharge Summary ---
Date of Service November 17, 2019 Principal Diagnosis gastrostomy tube exchange h/o gastrostomy tube Discharge Exam Constitutional no acute distress Gastrointestinal (Abdomen) Percussion/Palpation: abdomen soft gastrostomy tube intact Discharge Data Allergies Allergy/AdvReac Type Severity Reaction Status Date / Time No Known Allergies Allergy Mild Verified 11/17/19 07:13 Procedures Performed Operation Date: 11/17/19 07:30 Actual Procedures p Esophagogastroduodenoscopy - Bassam Cleaning DO s Feed Tube Exchange in OR - Bassam Cleaning DO Hospital Course (1) Status post gastrostomy: This is a 68y M with a PMH of TBI, MVR on coumadin, afib, and history of gastrostomy tube who presented to the general surgery clinic on 11/16/19 for bedside exchange of feeding tube. Patient's g-tube had been in place for ~5 years prior. During the attempted removal of the g-tube a portion of it broke off into the stomach and new one was unable to be advanced. Because of this the patient was admitted to the hospital for IVF hydration and was booked for the OR the following day. On 11/17/19 the patient underwent EGD retrieval of the retained portion of the feeding tube and a new gastric feeding tube was subsequently placed. The patient tolerated the procedure well, see operative note for full details. The patient recovered in the PACU and returned to the floor in stable condition. The patient's g-tube flushed easily without issues. On 11/17 the patient was deemed stable for discharge to home. He and were instructed to resume g-tube care and TEN as they had been previously. Patient will remain strict NPO and medications okay to resume via his feeding tube. He was instructed to follow up in clinic within 2 weeks. Total Time Total Time Spent Total Time Spent (In Minutes): 15 Discharge Plan Discharge Items Patient Disposition: Home - Self-Care Reason For Visit: GASTROSTOMY Discharge Diagnosis: feeding tube exchange Activity: Per Instructions section Lifting: Gradually increase as tolerated Bathing Comment: may shower starting today Exercise/Sports: Gradually increase as tolerated Non-emergency contact: Surgeon Call non-emergency contact if: you have any medication questions, your symptoms worsen, your pain is not controlled, your pain is worsening, you have a fever, your temperature is above 101.5, your wound has increased redness, your wound has increased drainage and your wound pain has increased Follow-up/Referrals: Bassam Cleaning, [Surgeon] - (Please call to schedule follow up in clinic within 2 weeks) Romie Beavers [Primary Care Provider] - Diet: Clear liquid Diet Comment: Please resume your TEN formula as previously instructed Addtl Attending Provider Instructions: Please care for your G-tube as previously instructed and continue on your TEN formula regimen as you have before. You are to remain nothing to eat or drink by mouth. You may resume your home medications as have previously been prescribed to you. Pending Studies at Discharge: No Stand-Alone Forms: [facility] [employer], Smoking Cessation Medications and DC Order Prescriptions: Continued fluoxetine 20 mg/5 mL (4 mg/mL) solution 20 mg PO DAILY RF: 0 ipratropium-albuterol 0.5 mg-3 mg(2.5 mg base)/3 mL Solution For Nebulization 3 ml NEB QID Qty: 120 RF: 1 budesonide [Pulmicort] 0.5 mg/2 mL suspension for nebulization 1 ml INH BID Qty: 60 RF: 5 (DME) Oxygen Home Liters Per Minute See Dose Instructions .ROUTE .MEDSUPPLY Qty: 1 RF: 0 warfarin 4 mg tablet 4 mg feeding tube DAILY Qty: 0 RF: 0 potassium chloride 20 mEq/15 mL liquid 15 ml feeding tube DAILY Qty: 0 RF: 0 metoclopramide HCl 5 mg tablet 5 mg feeding tube DAILY Qty: 0 RF: 0 metoprolol tartrate 50 mg tablet 50 mg feeding tube DAILY Qty: 0 RF: 0 pramipexole 0.25 mg tablet 1 tab feeding tube DAILY Qty: 0 RF: 0 doxazosin 2 mg tablet 2 mg feeding tube DAILY Qty: 0 RF: 0 esomeprazole magnesium 20 mg capsule,delayed release(DR/EC) 20 mg feeding tube DAILY Qty: 0 RF: 0 haloperidol lactate 2 mg/mL concentrate 1 ml feeding tube Q4H PRN (Reason: Agitation) Qty: 0 RF: 0 magnesium oxide 400 mg PEG DAILY RF: 0 guaifenesin 200 mg 10 ml PEG BID RF: 0 Hematinic/Folic Acid See Rx Instructions .ROUTE .COMPLEX RF: 0 quetiapine 100 mg tablet 100 mg feeding tube HS RF: 0 quetiapine 50 mg 1 tab feeding tube DAILY RF: 0 Discharge Orders: Discharge Order (Routine); Ordered 11/17/19 Ordered By: [employer] Admission Data Admit Date/Time: 11/16/19 14:59 Attending Provider: Bassam Cleaning Admit Provider: Bassam Cleaning Primary Care Provider: Romie Beavers Coding Level of Care Code D/C Day Management <30 mins Diagnoses Status post gastrostomy Z93.1
[2019-11-17] MEDS ORDERED: ACETAMINOPHEN SOL 650 MG/20.3 ML UDC PO PRN (12:09)
[2019-11-17] MEDS ORDERED: PRAMIPEXOLE DIHYDROCHLO 0.25 MG TAB PO SCH (12:45)
[2019-11-17] MEDS ORDERED: FLUOXETINE HCL 20 MG/5 ML UDP PO SCH (12:45)
[2019-11-17] MEDS ORDERED: METOCLOPRAMIDE HCL 5 MG TABLET PO SCH (12:45)
[2019-11-17] MEDS ORDERED: METOPROLOL TARTRATE 50 MG TAB PO SCH (12:45)
== END 2019-11-17 17:00 ==
LOC: 3W